=== PATIENT | male | born 1975 | race Caucasian/White ===

== ENCOUNTER 2018-03-28 22:33 | Inpatient (IN) | payer OTHER ==
[2018-03-28 23:01] VITALS: BMI 34.7
--- NOTE | 2018-03-29 00:23 | PDOC ---
History of Present Illness - General Chief Complaint: Blood Pressure Problem Stated Complaint: BLOOD PRESSURE PROBLEM Time Seen by Provider: 03/29/18 00:23 - History of Present Illness Initial Comments: 03/29/18 02:35 The patient is a 42 year old male with no significant PMH who presents for evaluation of elevated blood pressure. The patient notes that his blood pressures have been elevated over the past week on a home cuff and presented to an urgent care today where his bp was 210/110 and was sent to the ER for further evaluation. He states that he has not had blood pressure issues in the past and is not taking any medications or other substances. He otherwise denies fevers, chills, headache, chest pain, SOB, nausea, vomiting, abdominal pain, or changes with urination or bowel movements. Past History - Past Medical History Allergies/Adverse Reactions: Allergies Allergy/AdvReac Type Severity Reaction Status Date / Time No Known Drug Allergies Allergy Verified 03/29/18 00:43 - Suicide/Smoking/Psychosocial Hx Smoking History: Never smoked Have you smoked in the past 12 months: No Information on smoking cessation initiated: No Hx Alcohol Use: No Drug/Substance Use Hx: No Review of Systems - Review of Systems Comments:: 03/29/18 02:40 Constitutional: No fevers, chills, fatigue, malaise HEENT: No Rhinorrhea, nasal congestion, visual changes Cardiovascular: No chest pain, syncope, palpitations, lightheadedness Respiratory: No Cough, SOB, Hemoptysis, Gastrointestinal: No Abdominal pain, Nausea, Vomiting, Constipation, Diarrhea, Melena Genitourinary: No Dysuria, Frequency, Urgency, Hesitancy, Hematuria, Flank pain Musculoskeletal: No Myalgia, arthralgia Skin: No rashes, itching, bruising, pallor Neurologic: No Headache, Dizziness, Numbness, Weakness, or Tingling Psychiatric: No Hallucinations. No SI or HI *Physical Exam - Vital Signs Last Vital Signs Temp Pulse Resp BP Pulse Ox 98.0 F 78 18 209/120 100 03/28/18 22:56 03/28/18 22:56 03/28/18 22:56 03/28/18 22:56 03/28/18 22:56 - Physical Exam Comments: 03/29/18 02:41 General Appearance: Nourished. No Apparent Distress HEENT: No Pharyngeal Erythema, Tonsillar Exudate, Tonsillar Erythema Neck: No Cervical Lymphadenopathy Respiratory/Chest: Lungs Clear, Normal Breath Sounds. No Crackles, Rales, Rhonchi, Wheezing Cardiovascular: Regular Rhythm, Regular Rate. No Murmur, Gallops, Rubs Gastrointestinal/Abdominal: Normal Bowel Sounds, Soft. No Guarding, Rebound, Tenderness Musculoskeletal: No CVA Tenderness Extremity: Normal Capillary Refill Integumentary: Normal Color, Dry, Warm Neurologic: Fully Oriented, Alert, Normal Mood/Affect, Normal Response, Heart Score/ECG Review #1 ECG reviewed & interpreted by me at: 01:16 (Left Ventricular Hypertrophy; T wave inversions in leads V3-V6) General ECG Interpretation: Sinus Rhythm, Normal Rate, Normal Intervals, No acute ischemic changes #2 ECG reviewed & interpreted by me at: 05:31 (Left Ventricular Hypertrophy; T wave inversions in leads V2-V6) General ECG Interpretation: Sinus Rhythm, Normal Rate, Normal Intervals, No acute ischemic changes ED Treatment Course - LABORATORY CBC & Chemistry Diagram: 03/29/18 00:38 03/29/18 00:38 Medical Decision Making - Medical Decision Making 03/29/18 02:41 The patient is a 42 year old male with no significant PMH who presents for evaluation of elevated blood pressure. The patient is asymptomatic at this time , however we will obtain a cbc, cmp, troponin, ekg, and head ct to evaluate further. We will treat the patient with 10mg of iv hydralazine in the meantime and continue to monitor and reassess while here in the ED. 03/29/18 05:52 CBC, cmp, troponin are unremarkable. Head CT demonstrates microvascular changes as preliminarily read by our electronic transaction implementer radiologist. The patient's BP initially improved with 10mg of hydralazine and 20mg of labetolol, however it increased to 180/130. Given the patient's ekg changes with ventricular hypertrophy and t wave inversions as well as continued hypertension despite medication, we believe he requires admission for further management. We will place the patient on a nitro drip and obtain repeat troponin. We discussed the case with the admitting team who accepted the patient for admission. *DC/Admit/Observation/Transfer Diagnosis at time of Disposition: Uncontrolled hypertension High blood pressure Qualifiers: Hypertension type: unspecified Qualified Code(s): I10 - Essential (primary) hypertension - Discharge Dispostion Condition at time of disposition: Stable Decision to Admit order: Yes - Referrals - Patient Instructions - Post Discharge Activity
--- NOTE | 2018-03-29 00:31 | PDOC ---
Attending Attestation - HPI HPI: 03/29/18 00:32 The patient is a 42 year old male, with no significant past medical history, who presents to the emergency department with high blood pressure measured at home and then at urgent care last night. The patient denies chest pain, shortness of breath, headache and dizziness. The patient denies fever, chills, nausea, vomit, diarrhea and constipation. The patient denies dysuria, frequency, urgency and hematuria. Allergies: NKDA - Medical Decision Making 03/29/18 00:32 Documentation prepared by Telma Huston, acting as medical records tech for Luther Rajput DO. <Telma Huston - Last Filed: 03/29/18 00:32> - Resident Resident Name: Uri Bagley - ED Attending Attestation I have performed the following: I have examined & evaluated the patient, The case was reviewed & discussed with the resident, I agree w/resident's findings & plan, Exceptions are as noted - Physicial Exam PE: 03/29/18 00:3 *Physical Exam General Appearance: Yes: Appropriately Dressed. No: Apparent Distress, Intoxicated HEENT: positive: EOMI, ROMAN, Normal ENT Inspection, Normal Voice, TMs Normal, Pharynx Normal. negative: Pale Conjunctivae, Photophobia, Scleral Icterus (R), Scleral Icterus (L) Neck: positive: Trachea midline, Normal Thyroid, Supple. negative: Tender, Rigid, Carotid bruit, Stridor, Lymphadenopathy (R), Lymphadenopathy (L), Thyromegaly Respiratory/Chest: positive: Lungs Clear, Normal Breath Sounds. negative: Chest Tender, Respiratory Distress, Accessory Muscle Use, Labored Respiration, RES, Crackles, Rales, Rhonchi, Stridor, Wheezing, Dullness Cardiovascular: positive: Regular Rhythm, Regular Rate, S1, S2. negative: Edema , JVD, Murmur, Bradycardia, Tachycardia Vascular Pulses: Dorsalis-Pedis (R): 2+, Doralis-Pedis (L): 2+ Gastrointestinal/Abdominal: positive: Normal Bowel Sounds, Flat, Soft. negative : Tender, Organomegaly, Pulsatile Mass, Increased Bowel Sounds, Decreased BS, Distended, Guarding, Rebound, Hernia, Hepatomegaly, Spleenomegaly Lymphatic: negative: Adenopathy, Tenderness Musculoskeletal: positive: Normal Inspection. negative: CVA Tenderness, Decreased Range of Motion Extremity: positive: Normal Capillary Refill, Normal Inspection, Normal Range of Motion, Pelvis Stable. negative: Tender, Pedal Edema, Swelling, Erythema Integumentary: positive: Normal Color, Dry, Warm. negative: Cyanotic, Erythema , Jaundice, Rash Neurologic: positive: managing partner II-XII NML intact, Fully Oriented, Alert, Normal Mood/ Affect, Motor Strength 5/5. negative: EOM Palsy, Facial Droop, Sensory Deficit <Luther Rajput - Last Filed: 03/29/18 01:07>
[2018-03-29] MEDS ORDERED: hydrALAZINE HCL 20 MG/ML VIAL IVPUSH ONE (00:34)
[2018-03-29] MEDS ORDERED: hydrALAZINE HCL 20 MG/ML VIAL ONE (00:45)
[2018-03-29 01:00] LABS: EOS % 2.2 % (0-4.5); HEMATOCRIT 44.7 % (35.4-49); HEMOGLOBIN 15.2 GM/dL (11.7-16.9); LYMPH % 50.7 % (8-40); MCH 27.8 pg (25.7-33.7); MEAN CELL VOLUME 81.7 fl (80-96); MEAN PLT VOLUME 10.9 fl (7.5-11.1); MONO % 7.3 % (3.8-10.2); NEUT % 38.8 % (42.8-82.8); PLATELET COUNT 177 K/MM3 (134-434); RBC 5.47 M/mm3 (4.00-5.60); RDW 14.5 % (11.9-15.9); WHITE BLOOD COUNT 6.8 K/mm3 (4.0-10.0)
[2018-03-29 01:24] LABS: ALBUMIN 3.9 g/dl (3.4-5.0); ANION GAP 5 (8-16); BILIRUBIN,TOTAL 0.4 mg/dL (0.2-1.0); BLOOD UREA NITROGEN 15 mg/dL (7-18); CALCIUM 8.7 mg/dL (8.5-10.1); CHLORIDE 101 mmol/L (98-107); CO2 33 mmol/L (21-32); CREATININE 1.1 mg/dL (0.7-1.3); GLUCOSE,RANDOM 87 mg/dL (74-106); POTASSIUM 3.1 mmol/L (3.5-5.1); SGOT/AST 33 U/L (15-37); SGPT/ALT 47 U/L (12-78); SODIUM 139 mmol/L (136-145); TOT PROT 7.9 g/dl (6.4-8.2)
[2018-03-29 01:27] LABS: ALK PHOS 78 U/L (45-117)
[2018-03-29] MEDS ORDERED: LABETALOL HCL 5 MG/1 ML (100MG/20 ML VIAL) IVPUSH ONE (02:50)
[2018-03-29] MEDS ORDERED: LABETALOL HCL 5 MG/1 ML (200MG/40ML VIAL) IVPB ONE (03:07)
[2018-03-29] MEDS ORDERED: NITROGLYCERIN 25MG/D5W 250ML 25 MG/250 ML ML IVPB SCH (05:15)
[2018-03-29] MEDS ORDERED: NITROGLYCERIN 25MG/D5W 250ML 25 MG/250 ML ML IVPB ONE (05:16)
--- NOTE | 2018-03-29 05:59 | PN ---
Teaching Attending Note Name of Resident: She Curtis ATTENDING PHYSICIAN STATEMENT I saw and evaluated the patient. I reviewed the resident's note and discussed the case with the resident. I agree with the resident's findings and plan as documented. SUBJECTIVE: Patient is a 42 year old man with no significant PMH who presents for evaluation of elevated blood pressure. The patient notes that his blood pressures have been elevated over the past week on a home cuff and presented to an urgent care today where his BP was 210/110 and was sent to the ER for further evaluation. He states that he has not had blood pressure issues in the past and is not taking any medications or other substances. Unclear why he would purchase a BP machine and check his BP at home if indeed he has never maria de jesus told about hypertension. His mother has hypertension. He otherwise denies fevers , chills, headache, chest pain, SOB, nausea, vomiting, abdominal pain, or changes with urination or bowel movements. OBJECTIVE: Alert and in no acute distress Vital Signs Period Temp Pulse Resp BP Sys/Celestin Pulse Ox Last 24 Hr 98.0 F-98.3 F 75-89 18-19 149-209/102-130 96-100 HEENT: No Jaundice, eye redness or discharge, No papilledema. PERRLA, EOMI. Normocephalic, atraumatic. External ears are normal and hearing is grossly intact. No nasal discharge. Neck: Supple, nontender. No palpable adenopathy or thyromegaly. No JVD Chest: Good effort. Clear to auscultation and percussion. Heart: Regular. No S3, rub or murmur Abdomen: Not distended, soft, nontender and no HSM. No rebound or guarding. Normoactive bowel sounds. Ext: Peripheral pulses intact. No leg edema. Skin: Warm and dry. No petechiae, rash or ecchymosis. Neuro: Alert. Oriented x3. CN 2-12 grossly intact. Sensation grossly intact in all four extremities and DTR are symmetric. Current Medications Generic Name Dose Route Start Last Admin Trade Name Freq PRN Reason Stop Dose Admin Nitroglycerin/Dextrose 25 mg in 250 mls @ 6 mls/hr 03/29/18 05:15 03/29/18 05 :22 Nitroglycerin 25mg/D5w 250ml IVPB 10 mcg/min TITR POLY 6 mls/hr Administration 10 MCG/MIN Abnormal Lab Results 03/29/18 03/29/18 00:38 00:38 Neutrophils % 38.8 L Lymphocytes % 50.7 H Potassium 3.1 L Carbon Dioxide 33 H Anion Gap 5 L ASSESSMENT AND PLAN: 1. Hypertensive Urgency - EKG shows LVH, diffuse t wave inversion and ST depression but initial troponin is negative and he does not have chest pain. Will rule out ACS and consult cardiology. Get ECHO. Will admit to ICU because he is on nitroglycerin drip - bolus doses of labetalol and hydralazine failed to bring BP down consistently in the ER. Has hypokalemia and metabolic alkalosis - needs workup to rule out secondary hypertension - consult nephrology. Get UA, Mg+ level and give KCL IV 20 meq stat and then 40 mg PO bid x 3 doses. Give amlodipine 5 g po q am and lisinopril 20 mg po bid so that IV nitroglycerine taper can commence sooner. Will need HCTZ 12.5 mp po qd in the near future. Patient urged to eat a low salt diet, exercise and loose weight. 2. Obesity - Will provide patient all the necessary assistance , counseling and positive reinforcement to facilitate weight loss. Consult management expert. 3. DVT prophylaxis - Heparin 5000u sq tid. 4. Advance directives - Full code
[2018-03-29] MEDS ORDERED: HEPARIN NA (PORCINE) 5,000 UNITS/ML 1ML VIAL ONE (06:37)
[2018-03-29] MEDS: HEPARIN NA (PORCINE) 5,000 UNITS/ML 1ML VIAL SQ SCH ×3 (06:41→21:12)
--- NOTE | 2018-03-29 06:50 | HP ---
CHIEF COMPLAINT:Elevated blood pressure PCP: HISTORY OF PRESENT ILLNESS: Patient is a 42 year old male with no significant past medical history presented with elevated blood pressure. One week prior, patient decided to have his BP checked, and was noted to have 220/110. No associated symptoms. No consult done. Yesterday, he had it checked again and BP was still elevated at 200/100. Patient denies chest pain, palpitations, SOB, headaches, dizziness, changes in vision. Denied fever, chills, nausea, vomiting. ER course was notable for: (1)BP >160/>100 after giving Hydralazine, Labetalol. Patient now on Nitroglycerin drip. (2)Head CT: microvascular changes (3)EKG: LVH, T wave inversion, no ST-T wave abnormality Recent Travel:Denied any recent travel PAST MEDICAL HISTORY: None PAST SURGICAL HISTORY: None Social History: Smoking:nonsmoker Alcohol:occasional EtOH use Drugs: no illicit drug use Family History: Allergies No Known Drug Allergies Allergy (Verified 03/29/18 00:43) HOME MEDICATIONS: No home medications REVIEW OF SYSTEMS CONSTITUTIONAL: Absent: fever, chills, diaphoresis, generalized weakness, malaise, loss of appetite, weight change HEENT: Absent: rhinorrhea, nasal congestion, throat pain, throat swelling, difficulty swallowing, mouth swelling, ear pain, eye pain, visual changes CARDIOVASCULAR: Absent: chest pain, syncope, palpitations, irregular heart rate, lightheadedness , peripheral edema RESPIRATORY: Absent: cough, shortness of breath, dyspnea with exertion, orthopnea, wheezing, stridor, hemoptysis GASTROINTESTINAL: Absent: abdominal pain, abdominal distension, nausea, vomiting, diarrhea, constipation, melena, hematochezia GENITOURINARY: Absent: dysuria, frequency, urgency, hesitancy, hematuria, flank pain, genital pain MUSCULOSKELETAL: Absent: myalgia, arthralgia, joint swelling, back pain, neck pain SKIN: Absent: rash, itching, pallor HEMATOLOGIC/IMMUNOLOGIC: Absent: easy bleeding, easy bruising, lymphadenopathy, frequent infections ENDOCRINE: Absent: unexplained weight gain, unexplained weight loss, heat intolerance, cold intolerance NEUROLOGIC: Absent: headache, focal weakness or paresthesias, dizziness, unsteady gait, seizure, mental status changes, bladder or bowel incontinence PSYCHIATRIC: Absent: anxiety, depression, suicidal or homicidal ideation, hallucinations. PHYSICAL EXAMINATION Vital Signs - 24 hr 03/28/18 03/29/18 03/29/18 22:56 02:48 03:48 Temperature 98.0 F Pulse Rate 78 Pulse Rate [ 89 89 Right Apical] Respiratory 18 18 18 Rate Blood Pressure 209/120 Blood Pressure 196/117 164/102 [Right Arm] O2 Sat by Pulse 100 96 96 Oximetry (%) 03/29/18 03/29/18 03/29/18 04:08 05:00 05:54 Temperature 98.3 F Pulse Rate Pulse Rate [ 75 89 86 Right Apical] Respiratory 19 19 Rate Blood Pressure Blood Pressure 149/104 180/130 160/110 [Right Arm] O2 Sat by Pulse Oximetry (%) GENERAL: Awake, alert, and fully oriented, in no acute distress. HEAD: Normal with no signs of trauma. EYES: Pupils equal, round and reactive to light, extraocular movements intact, sclera anicteric, conjunctiva clear. No papilledema. EARS, NOSE, THROAT: Ears normal, nares patent, oropharynx clear without exudates. Moist mucous membranes. NECK: Normal range of motion, supple without lymphadenopathy, JVD, or masses. LUNGS: Breath sounds equal, clear to auscultation bilaterally. No wheezes, and no crackles. No accessory muscle use. HEART: Regular rate and rhythm, normal S1 and S2 without murmur, rub or gallop. ABDOMEN: Soft, nontender, not distended, normoactive bowel sounds, no guarding, no rebound, no masses. No hepatomegaly or splenomegaly. MUSCULOSKELETAL: Normal range of motion at all joints. No bony deformities or tenderness. No CVA tenderness. UPPER EXTREMITIES: 2+ pulses, warm, well-perfused. No cyanosis. No clubbing. No peripheral edema. LOWER EXTREMITIES: 2+ pulses, warm, well-perfused. No calf tenderness. No peripheral edema. NEUROLOGICAL: Cranial nerves II-XII intact. Normal speech. Normal gait. PSYCHIATRIC: Cooperative. Good eye contact. Appropriate mood and affect. SKIN: Warm, dry, normal turgor, no rashes or lesions noted, normal capillary refill. Laboratory Results - last 24 hr 03/29/18 03/29/18 03/29/18 00:38 00:38 05:22 WBC 6.8 RBC 5.47 Hgb 15.2 Hct 44.7 MCV 81.7 MCH 27.8 MCHC 34.0 RDW 14.5 Plt Count 177 MPV 10.9 Absolute Neuts (auto) 2.6 Neutrophils % 38.8 L Lymphocytes % 50.7 H Monocytes % 7.3 Eosinophils % 2.2 Basophils % 1.0 Nucleated RBC % 0 Sodium 139 Potassium 3.1 L Chloride 101 Carbon Dioxide 33 H Anion Gap 5 L BUN 15 Creatinine 1.1 Creat Clearance w eGFR > 60 Random Glucose 87 Calcium 8.7 Total Bilirubin 0.4 AST 33 ALT 47 Alkaline Phosphatase 78 Creatine Kinase 205 194 Creatine Kinase Index 0.5 CK-MB (CK-2) 1.13 Troponin I 0.03 < 0.02 D Total Protein 7.9 Albumin 3.9 CBC, BMP 03/29/18 00:38 03/29/18 00:38 ASSESSMENT/PLAN: Patient is a 42 year old male with no significant past medical history presented with elevated blood pressure. #Hypertensive emergency: Patient has uncontrolled blood pressure, with evolving EKG changes. -rule out ACS -Patient also presents with hypokalemia, rule out secondary cause of HTN -Continue Nitroglycerin drip -Start Amlodipine 10mg QD -Start Lisinopril 20 mg BID -Cardiology consult appreciated. -Nephrology consult appreciated. #Hypokalemia: Potassium is 3.1 -KCl 40 mEq PO BID x 3 doses -Monitor potassium, magnesium #FEN -Not on any standing fluids -routine electrolyte monitoring -sodium restricted diet #Prophylaxis -Heparin 5000 units sq TID #Disposition -admit to ICU -full code Visit type - Emergency Visit Emergency Visit: Yes ED Registration Date: 03/29/18 Care time: The patient presented to the Emergency Department on the above date and was hospitalized for further evaluation of their emergent condition. - New Patient This patient is new to me today: Yes Date on this admission: 03/29/18 - Critical Care Critical Care patient: No Hospitalist Screening - Colonoscopy Questionnaire Colonoscopy Questionnaire: Colonoscopy Questionnaire - Patient: 50 - 75 years old and never had a screening colonoscopy: Unknown History of colon or rectal polyps, or CA: Unknown History of IBD, Crohn's disease or UC: Unknown History of abdominal radiation therapy as a child: Unknown - Relative: 1 with colon or rectal CA, or polyps at age 60 or younger: Unknown Colon or rectal CA diagnosed at age 45 or younger: Unknown Multiple relatives with colon or rectal CA: Unknown - Outcome: Screening Result: Negative Screen
[2018-03-29] MEDS: NITROGLYCERIN 25MG/D5W 250ML 25 MG/250 ML ML IVPB SCH (07:10)
[2018-03-29 08:32] LABS: HEMATOCRIT 45.2 % (35.4-49); HEMOGLOBIN 15.3 GM/dL (11.7-16.9); MCH 27.9 pg (25.7-33.7); MCHC 33.9 g/dl (32.0-35.9); MEAN CELL VOLUME 82.3 fl (80-96); MEAN PLT VOLUME 10.5 fl (7.5-11.1); PLATELET COUNT 180 K/MM3 (134-434); RBC 5.49 M/mm3 (4.00-5.60); WHITE BLOOD COUNT 5.1 K/mm3 (4.0-10.0)
[2018-03-29 08:55] LABS: ALBUMIN 4.3 g/dl (3.4-5.0); ANION GAP 8 (8-16); BILIRUBIN,TOTAL 0.6 mg/dL (0.2-1.0); BLOOD UREA NITROGEN 13 mg/dL (7-18); CALCIUM 9.1 mg/dL (8.5-10.1); CHLORIDE 103 mmol/L (98-107); CO2 30 mmol/L (21-32); CREATININE 1.2 mg/dL (0.7-1.3); GLUCOSE,RANDOM 108 mg/dL (74-106); MAGNESIUM 2.2 mg/dL (1.8-2.4); PHOSPHOROUS 2.6 mg/dL (2.5-4.9); POTASSIUM 3.3 mmol/L (3.5-5.1); SGOT/AST 27 U/L (15-37); SGPT/ALT 45 U/L (12-78); SODIUM 141 mmol/L (136-145); TOT PROT 8.5 g/dl (6.4-8.2)
[2018-03-29 08:58] LABS: ALK PHOS 82 U/L (45-117)
--- NOTE | 2018-03-29 09:02 | PN ---
Teaching Attending Note Name of Resident: Shruti Luciano ATTENDING PHYSICIAN STATEMENT I saw and evaluated the patient. I reviewed the resident's note and discussed the case with the resident. I agree with the resident's findings and plan as documented. SUBJECTIVE: Patient is comfortable has no chest pain , no abdominal pain, was found to have elevated BP at home and came in for further care and evaluation. OBJECTIVE: Vital Signs Temperature 98.0 F 03/29/18 08:04 Pulse Rate 84 03/29/18 08:04 Respiratory Rate 21 03/29/18 08:04 Blood Pressure 145/87 03/29/18 08:04 O2 Sat by Pulse Oximetry (%) 95 03/29/18 08:04 HEENT: No Jaundice, eye redness or discharge, No papilledema. PERRLA, EOMI. Normocephalic, atraumatic. External ears are normal and hearing is grossly intact. No nasal discharge. Neck: Supple, nontender. No palpable adenopathy or thyromegaly. No JVD Chest: Good effort. Clear to auscultation and percussion. Heart:RRR, Regular. No S3, rub or murmur Abdomen: Not distended, soft, nontender and no HSM. No rebound or guarding. Normoactive bowel sounds. Ext: Peripheral pulses intact. No leg edema. Skin: Warm and dry. No petechiae, rash or ecchymosis. Neuro: Alert. Oriented x3. CN 2-12 grossly intact. Sensation grossly intact in all four extremities and DTR are symmetric. CBCD WBC 5.1 K/mm3 (4.0-10.0) 03/29/18 08:20 RBC 5.49 M/mm3 (4.00-5.60) 03/29/18 08:20 Hgb 15.3 GM/dL (11.7-16.9) 03/29/18 08:20 Hct 45.2 % (35.4-49) 03/29/18 08:20 MCV 82.3 fl (80-96) 03/29/18 08:20 MCHC 33.9 g/dl (32.0-35.9) 03/29/18 08:20 RDW 14.0 % (11.9-15.9) 03/29/18 08:20 Plt Count 180 K/MM3 (134-434) 03/29/18 08:20 MPV 10.5 fl (7.5-11.1) 03/29/18 08:20 CMP Sodium 139 mmol/L (136-145) 03/29/18 00:38 Potassium 3.1 mmol/L (3.5-5.1) L 03/29/18 00:38 Chloride 101 mmol/L (98-107) 03/29/18 00:38 Carbon Dioxide 33 mmol/L (21-32) H 03/29/18 00:38 Anion Gap 5 (8-16) L 03/29/18 00:38 BUN 15 mg/dL (7-18) 03/29/18 00:38 Creatinine 1.1 mg/dL (0.7-1.3) 03/29/18 00:38 Creat Clearance w eGFR > 60 (>60) 03/29/18 00:38 Random Glucose 87 mg/dL (74-106) 03/29/18 00:38 Calcium 8.7 mg/dL (8.5-10.1) 03/29/18 00:38 Total Bilirubin 0.4 mg/dL (0.2-1.0) 03/29/18 00:38 AST 33 U/L (15-37) 03/29/18 00:38 ALT 47 U/L (12-78) 03/29/18 00:38 Alkaline Phosphatase 78 U/L (45-117) 03/29/18 00:38 Total Protein 7.9 g/dl (6.4-8.2) 03/29/18 00:38 Albumin 3.9 g/dl (3.4-5.0) 03/29/18 00:38 CARDIAC ENZYMES Creatine Kinase 194 IU/L (39-308) 03/29/18 05:22 Troponin I < 0.02 ng/ml (0.00-0.05) D 03/29/18 05:22 Current Medications Generic Name Dose Route Start Last Admin Trade Name Seda PRN Reason Stop Dose Admin Amlodipine Besylate 10 mg 03/29/18 10:00 Norvasc - PO DAILY POLY Heparin Sodium (Porcine) 5,000 unit 03/29/18 06:30 03/29/18 06:41 Heparin - SQ 5,000 unit TID POLY Administration Nitroglycerin/Dextrose 25 mg in 250 mls @ 1.8 mls/hr 03/29/18 06:52 03/29/18 07:10 Nitroglycerin 25mg/D5w 250ml IVPB 3 mcg/min TITR POLY 1.8 mls/hr Administration 3 MCG/MIN Lisinopril 20 mg 03/29/18 10:00 Prinivil PO BID POLY Potassium Chloride 40 meq 03/29/18 10:00 K-Dur - PO 03/30/18 10:01 BID POLY Home Medications Medication Instructions Recorded NK [No Known Home Medication] 03/29/[address]: supratentrial chronic white matter microangiopathic ischemic changes, no evidence of infarction. ASSESSMENT AND PLAN: Patient is a 42 year old man with no significant PMHx who presents for evaluation of elevated blood pressure. # Hypertensive Urgency - On NTG drip was started in ED. cardio consult appreciated. on Amlodipine, echo ordered , nephro consult appreciated. # Obesity - Will provide patient all the necessary assistance , counseling and positive reinforcement to facilitate weight loss. Consult area relief pilot. DVT prophylaxis - Heparin 5000u sq tid. Advance directives - Full code
[2018-03-29] MEDS ORDERED: LISINOPRIL 20 MG TABLET (FP) PO SCH (10:00)
[2018-03-29] MEDS: POTASSIUM CHLORIDE TABS 20 MEQ TABLET.ER (FP) PO SCH ×2 (11:36→21:12)
[2018-03-29] MEDS: amLODIPine BESYLATE 10 MG TABLET (FP) PO SCH (11:36)
--- NOTE | 2018-03-29 12:46 | EKG ---
Test Reason : Blood Pressure : / mmHG Vent. Rate : 073 BPM Atrial Rate : 073 BPM P-R Int : 182 ms QRS Dur : 112 ms QT Int : 414 ms P-R-T Axes : 056 -12 180 degrees QTc Int : 456 ms NORMAL SINUS RHYTHM BIATRIAL ENLARGEMENT LEFT VENTRICULAR HYPERTROPHY WITH REPOLARIZATION ABNORMALITY ABNORMAL ECG WHEN COMPARED WITH ECG OF 29-MAR-2018 01:03, NO SIGNIFICANT CHANGE WAS FOUND Confirmed by [place] MCKINNEY, AGUSTINA ([id number]) on 03/29/2018 12:45:55 PM Referred By: Confirmed By:AGUSTINA HO MD
--- NOTE | 2018-03-29 12:46 | EKG ---
Test Reason : Blood Pressure : / mmHG Vent. Rate : 082 BPM Atrial Rate : 082 BPM P-R Int : 174 ms QRS Dur : 112 ms QT Int : 392 ms P-R-T Axes : 052 -08 174 degrees QTc Int : 457 ms NORMAL SINUS RHYTHM LEFT VENTRICULAR HYPERTROPHY WITH REPOLARIZATION ABNORMALITY ABNORMAL ECG NO PREVIOUS ECGS AVAILABLE Confirmed by [place] MCKINNEY, AGUSTINA ([id number]) on 03/29/2018 12:46:09 PM Referred By: Confirmed By:AGUSTINA HO MD
[2018-03-29 13:20] LABS: CHOLESTEROL 198 mg/dL (50-200); HDL CHOLESTEROL 54 mg/dL (40-60); TRIGLYCERIDES 75 mg/dL (35-160)
[2018-03-29] MEDS ORDERED: ASPIRIN 81 MG CHEWABLE TABLETS ONE (14:03)
[2018-03-29] MEDS: ASPIRIN 81 MG CHEWABLE TABLETS PO SCH (14:08)
--- NOTE | 2018-03-29 14:14 | PN ---
Physical Exam: SUBJECTIVE: Patient is a 42 y/o male with no medical history who presents with hypertensive urgency. In the ED he was given hydralazine, labetalol, and then started on a nitroglycerin drip. Patient has no complaints, denies headache, eye pain, or chest pain. No acute events overnight. Patient in holding of ED waiting for a tele bed OBJECTIVE: Vital Signs Period Temp Pulse Resp BP Sys/Celestin Pulse Ox Last 24 Hr 98.0 F-98.5 F 75-89 18-21 145-209/72-130 94-100 GENERAL: The patient is awake, alert, and fully oriented, in no acute distress. EYES: PERRL, extraocular movements intact. LUNGS: Breath sounds equal, clear to auscultation bilaterally HEART: Regular rate and rhythm, ABDOMEN: Soft, nontender, nondistended, normoactive bowel sounds EXTREMITIES: 2+ pulses, warm, well-perfused, no edema. NEUROLOGICAL: Normal speech, normal gait PSYCH: Normal mood, normal affect. SKIN: Warm, dry, normal turgor, no rashes or lesions noted Laboratory Results - last 24 hr 03/29/18 03/29/18 03/29/18 00:38 00:38 05:22 WBC 6.8 RBC 5.47 Hgb 15.2 Hct 44.7 MCV 81.7 MCH 27.8 MCHC 34.0 RDW 14.5 Plt Count 177 MPV 10.9 Absolute Neuts (auto) 2.6 Neutrophils % 38.8 L Lymphocytes % 50.7 H Monocytes % 7.3 Eosinophils % 2.2 Basophils % 1.0 Nucleated RBC % 0 Sodium 139 Potassium 3.1 L Chloride 101 Carbon Dioxide 33 H Anion Gap 5 L BUN 15 Creatinine 1.1 Creat Clearance w eGFR > 60 Random Glucose 87 Calcium 8.7 Phosphorus Magnesium Total Bilirubin 0.4 AST 33 ALT 47 Alkaline Phosphatase 78 Creatine Kinase 205 194 Creatine Kinase Index 0.5 0.6 CK-MB (CK-2) 1.13 1.25 Troponin I 0.03 < 0.02 D Total Protein 7.9 Albumin 3.9 Triglycerides Cholesterol Total LDL Cholesterol HDL Cholesterol 03/29/18 03/29/18 08:00 08:20 WBC 5.1 RBC 5.49 Hgb 15.3 Hct 45.2 MCV 82.3 MCH 27.9 MCHC 33.9 RDW 14.0 Plt Count 180 MPV 10.5 Absolute Neuts (auto) Neutrophils % Lymphocytes % Monocytes % Eosinophils % Basophils % Nucleated RBC % Sodium 141 Potassium 3.3 L Chloride 103 Carbon Dioxide 30 Anion Gap 8 BUN 13 Creatinine 1.2 Creat Clearance w eGFR > 60 Random Glucose 108 H D Calcium 9.1 Phosphorus 2.6 Magnesium 2.2 Total Bilirubin 0.6 AST 27 ALT 45 Alkaline Phosphatase 82 Creatine Kinase 174 Creatine Kinase Index 0.5 CK-MB (CK-2) 0.98 Troponin I < 0.02 Total Protein 8.5 H Albumin 4.3 Triglycerides 75 Cholesterol 198 Total LDL Cholesterol 126 H HDL Cholesterol 54 Active Medications Generic Name Dose Route Start Last Admin Trade Name Freq PRN Reason Stop Dose Admin Amlodipine Besylate 10 mg 03/29/18 10:00 03/29/18 11:36 Norvasc - PO 10 mg DAILY [facility] Administration Aspirin 81 mg 03/29/18 13:00 Asa - PO DAILY [facility] Atorvastatin Calcium 40 mg 03/29/18 22:00 Lipitor - PO HS [facility] Heparin Sodium (Porcine) 5,000 unit 03/29/18 06:30 03/29/18 06:41 Heparin - SQ 5,000 unit TID [facility] Administration Nitroglycerin/Dextrose 25 mg in 250 mls @ 1.8 mls/hr 03/29/18 06:52 03/29/18 07:10 Nitroglycerin 25mg/D5w 250ml IVPB 3 mcg/min TITR POLY 1.8 mls/hr Administration 3 MCG/MIN Potassium Chloride 10 meq in 100 mls @ 100 mls/hr 03/29/18 13:00 Potassium Chloride 10 Meq Premix Ivpb - IVPB 03/29/18 15:59 Q60M POLY Lisinopril 20 mg 03/29/18 10:00 03/29/18 11:36 Prinivil PO 20 mg BID [facility] Administration Potassium Chloride 40 meq 03/29/18 10:00 03/29/18 11:36 K-Dur - PO 03/30/18 10:01 40 meq BID [facility] Administration ASSESSMENT/PLAN: Patient is a 42 y/o male with no medical history who presents with hyertensive urgency. #Hypertensive Urgency - Nitroglycerin drip - amlodipine 10 mg daily - Metoprolol tartrate 50 mg twice daily - Losartan-HCTZ 50-25mg daily - aspirin 81 mg - atorvastatin 40 po hs - f/u echo - Cardio consult; Dr. Mullen - Nephro consult; Devang - trop negative x 2 - EKG : LVH, diffuse Twave inversion, ST depression - Head CT: supratentrial chronic white matter microangiopathic ischemic changes, no evidence of infarction #obestiy -dietary consult - f/u lipid panel FEN -replete K Dispo: possibly tomorrow if stable BP Visit type - Emergency Visit Emergency Visit: Yes ED Registration Date: 03/29/18 Care time: The patient presented to the Emergency Department on the above date and was hospitalized for further evaluation of their emergent condition. - New Patient This patient is new to me today: Yes Date on this admission: 03/29/18 - Critical Care Critical Care patient: No
--- NOTE | 2018-03-29 15:02 | CON.CARD ---
Consult Consult Specialty:: Cardiology Referred by:: Dr. Saleem Reason for Consultation:: Severe hypertension - History of Present Illness Chief Complaint: Severe hypertension History of Present Illness: 42 year old obese man with no known significant past medical history presented to ED 03/29/18 with severe hypertension. The patient was noted to have severe hypertension one week ago (220/110). His BP remains elevated today 200/100 and he decided to come to ED for treatement. He has been asymptomatic from cardiac standpoint. He reports no chest pain, SOB , palpitations, headaches, dizziness, changes in vision, syncope, near syncope, edema, orthopnea or PND. He has good baseline exercise tolerance without exertional chest pain or SOB. ER course was notable for: (1)BP >160/>100 after giving Hydralazine, Labetalol. Patient now on Nitroglycerin drip. (2)Head CT: microvascular changes (3)EKG: Sinus rhythm, LVH, inferolateral ST-T abnormalities. - History Source History Provided By: Patient, Family Member Limitations to Obtaining History: No Limitations - Past Medical History Cardio/Vascular: Yes: HTN - Alcohol/Substance Use Hx Alcohol Use: No - Smoking History Smoking history: Never smoked Have you smoked in the past 12 months: No Home Medications - Allergies Allergies/Adverse Reactions: Allergies Allergy/AdvReac Type Severity Reaction Status Date / Time No Known Drug Allergies Allergy Verified 03/29/18 00:43 - Home Medications Home Medications: Ambulatory Orders NK [No Known Home Medication] 03/29/18 Review of Systems - Review of Systems Constitutional: reports: No Symptoms Eyes: reports: No Symptoms HENT: reports: No Symptoms Neck: reports: No Symptoms Cardiovascular: reports: No Symptoms Respiratory: reports: No Symptoms Gastrointestinal: reports: No Symptoms Genitourinary: reports: No Symptoms Breasts: reports: No Symptoms Reported Musculoskeletal: reports: No Symptoms Integumentary: reports: No Symptoms Neurological: reports: No Symptoms Endocrine: reports: No Symptoms Hematology/Lymphatic: reports: No Symptoms Vital Signs: Vital Signs Temperature 98.0 F 03/29/18 08:04 Pulse Rate 84 03/29/18 11:35 Respiratory Rate 03/29/18 11:35 Blood Pressure 168/103 03/29/18 11:35 O2 Sat by Pulse Oximetry (%) 94 L 03/29/18 11:35 General: Well developed. Obese. No acute distress. Head: Normocephalic. Atraumatic, Eyes: PERRLA, EOMI. Sclerae anicteric. Conjunctivae clear. Neck: Supple. No JVD. No bruits. Heart: Normal S1, S2: Regularly regular rhythm and rate. No murmur. No gallop or rub. Lungs: Symmetrical air entry. Clear to auscultation. No crackle. No wheezing or rhonchi. Abdomen: Soft. Bowel sound positive. Non tender. No masses. Extremities: No edema. No clubbing or cyanosis. PD 2+, equal bilaterally. Neuro: Intact, no focal findings. AAO X3. - Other Data Labs, Other Data: CBC, BMP 03/29/18 08:20 03/29/18 08:00 Troponin, BNP 03/29/18 03/29/18 03/29/18 00:38 05:22 08:00 Troponin I 0.03 < 0.02 D < 0.02 Troponin, BNP 03/29/18 03/29/18 03/29/18 00:38 05:22 08:00 Troponin I 0.03 < 0.02 D < 0.02 Imaging - Results EKG: Image Reviewed (EKG: Sinus rhythm, LVH, inferolateral ST-T abnormalities.) Assessment/Plan 42 year old obese man with no known significant past medical history presented to ED 03/29/18 with severe hypertension. He was given hydralazine, Labetalol in ED. Nitroglycerin drip started. Head CT: microvascular changes EKG: Sinus rhythm, LVH, inferolateral ST-T abnormalities. Severe hypertension, likely chronic based on ECG abnormalities. May lower his BP gradually. 1) Start Metoprolol tartrate 50 mg twice daily. 2) Start Losartan-HCTZ 50-25mg daily. 3) Continue Amlodipine for now. 4) Taper off IV NTG. 5) May stop Lisinopril and labetalol. 6) Obtain an echocardiogram to evaluate his cardiac dimensions and function. We will follow with you.
[2018-03-29] MEDS: KCL 10 MEQ IVPB 10 MEQ/100 ML INFUS.BAG IVPB SCH ×3 (15:19→17:58)
[2018-03-29] MEDS: ATORVASTATIN CA 40 MG TABLET (FP) PO SCH (21:12)
[2018-03-29] MEDS: METOPROLOL TARTRATE 50 MG TABLET (FP) PO SCH (21:12)
[2018-03-30 06:58] LABS: ANION GAP 5 (8-16); BLOOD UREA NITROGEN 15 mg/dL (7-18); CALCIUM 8.7 mg/dL (8.5-10.1); CHLORIDE 106 mmol/L (98-107); CO2 30 mmol/L (21-32); CREATININE 1.2 mg/dL (0.7-1.3); GLUCOSE,RANDOM 80 mg/dL (74-106); POTASSIUM 3.7 mmol/L (3.5-5.1); SODIUM 141 mmol/L (136-145)
[2018-03-30] MEDS: HEPARIN NA (PORCINE) 5,000 UNITS/ML 1ML VIAL SQ SCH ×3 (07:02→22:55)
[2018-03-30] MEDS: NITROGLYCERIN 25MG/D5W 250ML 25 MG/250 ML ML IVPB SCH (07:43)
[2018-03-30] MEDS: POTASSIUM CHLORIDE TABS 20 MEQ TABLET.ER (FP) PO SCH (09:20)
[2018-03-30] MEDS: METOPROLOL TARTRATE 50 MG TABLET (FP) PO SCH ×2 (09:21→22:44)
[2018-03-30] MEDS: ASPIRIN 81 MG CHEWABLE TABLETS PO SCH (09:21)
[2018-03-30] MEDS: HYDROCHLOROTHIAZIDE 25 MG TABLET (FP) PO SCH (09:21)
[2018-03-30] MEDS: amLODIPine BESYLATE 10 MG TABLET (FP) PO SCH (09:21)
[2018-03-30] MEDS: LOSARTAN POTASSIUM 50 MG TABLET (FP) PO SCH (09:41)
[2018-03-30] MEDS ORDERED: LOSARTAN POTASSIUM 25 MG TABLET PO SCH (10:00)
[2018-03-30] MEDS ORDERED: LOSARTAN POTASSIUM 50 MG TABLET (FP) PO SCH (10:00)
--- NOTE | 2018-03-30 11:39 | CONSULT ---
Consult - text type - Consultation Consultation Note: Renal Consult for hypertensive urgency This is a 42 year old gentleman with Hx of hypertension who presented with elevated BP and found to have BP > 200/100. Pt reports checking his BP at home 3x this past week and it was > 220 systolic. He went to an urgent care and then [facility] referred to the ED. Pt is not on any anti-hypertensives at home. Denies taking any OTC meds, herbals. No Tobacco use. Denies any MORALES, dizziness, spells, flank pain. No Hx of renal disease. PMHx: as above Allergies: NKDA Family Hx: NC Social hx: no T/A/D ROS: As per HPI Home Medications Medication Instructions Recorded None 03/29/18 Vital Signs Temperature 98.6 F 03/30/18 02:00 Pulse Rate 75 03/30/18 09:20 Respiratory Rate 18 03/30/18 08:00 Blood Pressure 157/104 03/30/18 09:20 O2 Sat by Pulse Oximetry (%) 95 03/30/18 08:00 Intake & Output 03/27/18 03/28/18 03/29/18 03/30/18 23:59 23:59 23:59 23:59 Intake Total 20 Balance 20 Weight 116.12 kg 116.12 kg NAD awake and alert RRR, No M/R CTA, no rales or wheeze CBC, BMP 03/29/18 08:20 03/30/18 05:30 Current Medications Amlodipine Besylate (Norvasc -) 10 mg PO DAILY [facility] Last Admin: 03/30/18 09:21 Dose: 10 mg Aspirin (Asa -) 81 mg PO DAILY [facility] Last Admin: 03/30/18 09:21 Dose: 81 mg Atorvastatin Calcium (Lipitor -) 40 mg PO HS [facility] Last Admin: 03/29/18 21:12 Dose: 40 mg Heparin Sodium (Porcine) (Heparin -) 5,000 unit SQ TID [facility] Last Admin: 03/30/18 07:02 Dose: 5,000 unit Hydrochlorothiazide (Hctz -) 25 mg PO DAILY [facility] Last Admin: 03/30/18 09:21 Dose: 25 mg Losartan Potassium (Cozaar -) 100 mg PO DAILY [facility] Metoprolol Tartrate (Lopressor -) 50 mg PO BID [facility] Last Admin: 03/30/18 09:21 Dose: 50 mg 42 year old gentleman with Hx of hypertension who presented with elevated BP and found to have BP > 200/100. Pt reports checking his BP at home 3x this past week and it was > 220 systolic. #Hypertensive Urgency #Hypokalemia Etiology of hypertension likely essential hypertension that was not detected or treated. However given hypokalemia on presentation can consider primary hyperaldosteronism. Agree with Losartan/HCTZ/Metoprolol as advised by cardiology Check Renin/Aldosterone levels Taper off Nitro gtt Low salt diet, diet education Check UA and UPCR no renal imaging needed at this time will need to treat renal function on ARB Thank you Will follow Otoniel Coles DO
--- NOTE | 2018-03-30 11:53 | ECHO ---
Name: ELYSE CHOU Exam:Adult Echocardiogram Study Date: 03/30/2018 08:33 AM Age: 42 yrs Reason For Study: htn urgency Height: 72 in Weight: 256 lb BSA: 2.4 m2 MMode/2D Measurements & Calculations IVSd: 1.4 cm Ao root diam: 3.2 cm LVIDd: 4.8 cm LA dimension: 3.2 cm LVIDs: 3.2 cm LVPWd: 1.4 cm LVPWs: 1.9 cm EDV(Teich): 105.7 ml ESV(Teich): 42.0 ml Doppler Measurements & Calculations MV E max jesse: 95.3 cm/sec Ao V2 max: 157.1 cm/sec MV A max jesse: 57.3 cm/sec Ao max P.9 mmHg MV E/A: 1.7 MV dec time: 0.14 sec LV V1 max P.1 mmHg PA V2 max: 141.2 cm/sec LV V1 max: 112.5 cm/sec PA max P.0 mmHg Med Peak E' Jesse: 5.0 cm/sec Med E/e': 18.9 Lat Peak E' Jesse: 6.9 cm/sec Lat E/e': 13.8 Procedure The study was technically adequate with some images being suboptimal in quality. Left Ventricle The left ventricle is normal in size. There is mild concentric left ventricular hypertrophy. Left dary tricular systolic function is normal. Left Ventricular Filling pattern is normal for age. Right Ventricle The right ventricle is normal in size and function. Atria Normal left and right atrial size and function. Mitral Valve The mitral valve is grossly normal. There is trace mitral regurgitation. Tricuspid Valve The tricuspid valve is not well visualized, but is grossly normal. There is trace tricuspid regurgita tion. There was insufficient TR detected to calculate RV systolic pressure. Aortic Valve The aortic valve opens well. The aortic valve is normal in structure and function. Pulmonic Valve The pulmonic valve is not well visualized. There is no pulmonic valvular regurgitation. Great Vessels The aortic root is normal size. Pericardium/Pleura There is no pericardial effusion. Interpretation Summary There is no comparison study available. The left ventricle is normal in size. Left ventricular systolic function is normal. The right ventricle is normal in size and function. There is mild concentric left ventricular hypertrophy. Dallas Holland MD 03/30/2018 11:52 AM
--- NOTE | 2018-03-30 14:41 | PN ---
Physical Exam: SUBJECTIVE: Patient is a 42 y/o male with no medical history who presents with hypertensive urgency. Patient has no complaints today. No acute events overnight. OBJECTIVE: Vital Signs Period Temp Pulse Resp BP Sys/Celestin Pulse Ox Last 24 Hr 98.6 F-99.0 F 73-89 18-20 147-161/89-113 95-95 GENERAL: The patient is awake, alert, and fully oriented, in no acute distress. EYES: PERRL, extraocular movements intact. LUNGS: Breath sounds equal, clear to auscultation bilaterally HEART: Regular rate and rhythm, ABDOMEN: Soft, nontender, nondistended, normoactive bowel sounds EXTREMITIES: 2+ pulses, warm, well-perfused, no edema. NEUROLOGICAL: Normal speech, normal gait PSYCH: Normal mood, normal affect. SKIN: Warm, dry, normal turgor, no rashes or lesions noted Laboratory Results - last 24 hr 03/30/18 03/30/18 03/30/18 05:30 05:30 10:00 Sodium 141 Potassium 3.7 Chloride 106 Carbon Dioxide 30 Anion Gap 5 L BUN 15 Creatinine 1.2 Creat Clearance w eGFR > 60 Random Glucose 80 D Calcium 8.7 Blood Type O POSITIVE O POSITIVE Antibody Screen Negative Active Medications Generic Name Dose Route Start Last Admin Trade Name Freq PRN Reason Stop Dose Admin Amlodipine Besylate 10 mg 03/29/18 10:00 03/30/18 09:21 Norvasc - PO 10 mg DAILY [facility] Administration Aspirin 81 mg 03/29/18 13:00 03/30/18 09:21 Asa - PO 81 mg DAILY [facility] Administration Atorvastatin Calcium 40 mg 03/29/18 22:00 03/29/18 21:12 Lipitor - PO 40 mg HS [facility] Administration Heparin Sodium (Porcine) 5,000 unit 03/29/18 06:30 03/30/18 13:41 Heparin - SQ 5,000 unit TID [facility] Administration Hydrochlorothiazide 25 mg 03/30/18 10:00 03/30/18 09:21 Hctz - PO 25 mg DAILY [facility] Administration Losartan Potassium 100 mg 03/30/18 10:00 03/30/18 09:41 Cozaar - PO 100 mg DAILY [facility] Administration Metoprolol Tartrate 100 mg 03/30/18 14:37 Lopressor - PO BID [facility] ASSESSMENT/PLAN: Patient is a 42 y/o male with no medical history who presents with hypertensive urgency. #Hypertensive Urgency - Nitroglycerin drip - Nifedipine 60 mg daily - Metoprolol tartrate 100 mg twice daily - Losartan-HCTZ 100-25mg daily - aspirin 81 mg - atorvastatin 40 po hs - echo- LV systolic function normal, RV normal in size and function, mild LVH - Cardio consult; Dr. Mullen - Nephro consult; Devang; f/u renin/aldosterone levels to r/o primary hyperaldosteronism - trop negative x 2 - EKG : LVH, diffuse Twave inversion, ST depression - Head CT: supratentrial chronic white matter microangiopathic ischemic changes, no evidence of infarction - most recent BP 157/107 #obestiy - dietary consult - f/u lipid panel - low salt diet FEN -replete K Dispo: possibly tomorrow if stable BP, sleep study outpatient Visit type - Emergency Visit Emergency Visit: No - New Patient This patient is new to me today: No - Critical Care Critical Care patient: No
--- NOTE | 2018-03-30 14:53 | PN ---
Progress Note, Physician Chief Complaint: Patient appears comfortable. He reports no chest pain, SOB or palpitation. Tele showed episodes of sinus bradycardia at 9:00 PM yesterday and 7:00 AM today. His average heart rate is around 75 BPM now. History of Present Illness: 42 year old obese man with no known significant past medical history presented to ED 03/29/18 with severe hypertension. He was given hydralazine, Labetalol in ED. Nitroglycerin drip started. Head CT: microvascular changes EKG: Sinus rhythm, LVH, inferolateral ST-T abnormalities. - Current Medication List Current Medications: Active Medications Amlodipine Besylate (Norvasc -) 10 mg PO DAILY [facility] Last Admin: 03/30/18 09:21 Dose: 10 mg Aspirin (Asa -) 81 mg PO DAILY [facility] Last Admin: 03/30/18 09:21 Dose: 81 mg Atorvastatin Calcium (Lipitor -) 40 mg PO HS [facility] Last Admin: 03/29/18 21:12 Dose: 40 mg Heparin Sodium (Porcine) (Heparin -) 5,000 unit SQ TID [facility] Last Admin: 03/30/18 13:41 Dose: 5,000 unit Hydrochlorothiazide (Hctz -) 25 mg PO DAILY [facility] Last Admin: 03/30/18 09:21 Dose: 25 mg Losartan Potassium (Cozaar -) 100 mg PO DAILY [facility] Last Admin: 03/30/18 09:41 Dose: 100 mg Metoprolol Tartrate (Lopressor -) 100 mg PO BID [facility] - Objective Vital Signs: Vital Signs Temperature 98.6 F 03/30/18 02:00 Pulse Rate 81 03/30/18 13:39 Respiratory Rate 18 03/30/18 08:00 Blood Pressure 157/107 03/30/18 13:39 O2 Sat by Pulse Oximetry (%) 95 03/30/18 08:00 General: Well developed. Obese. No acute distress. Head: Normocephalic. Atraumatic, Eyes: PERRLA, EOMI. Sclerae anicteric. Conjunctivae clear. Neck: Supple. No JVD. No bruits. Heart: Normal S1, S2: Regularly regular rhythm and rate. No murmur. No gallop or rub. Lungs: Symmetrical air entry. Clear to auscultation. No crackle. No wheezing or rhonchi. Abdomen: Soft. Bowel sound positive. Non tender. No masses. Extremities: No edema. No clubbing or cyanosis. PD 2+, equal bilaterally. Neuro: Intact, no focal findings. AAO X3. Labs: CBC, BMP 03/29/18 08:20 03/30/18 05:30 Assessment/Plan 42 year old obese man with no known significant past medical history presented to ED 03/29/18 with severe hypertension. He was given hydralazine, Labetalol in ED. Nitroglycerin drip started. Head CT: microvascular changes EKG: Sinus rhythm, LVH, inferolateral ST-T abnormalities. Severe hypertension, likely chronic based on ECG abnormalities. BP controlled improved. 1) Could continue Metoprolol tartrate 100 mg twice daily. The bradycardia could be caused by obstructive sleep apnea (He was sleeping at the time of bradycardia ). 2) Continue Losartan and HCTZ. 3) May chanage Amlodipine to Nifedipine 60 mg daily. 4) Obtain an echocardiogram to evaluate his cardiac dimensions and function. 5) Out patient sleep study. We will follow with you.
--- NOTE | 2018-03-30 20:27 | PN ---
Teaching Attending Note Name of Resident: Shruti Luciano ATTENDING PHYSICIAN STATEMENT I saw and evaluated the patient. I reviewed the resident's note and discussed the case with the resident. I agree with the resident's findings and plan as documented. SUBJECTIVE: Patient is comfortable no acute distress, no shortness of breath, no nausea or vomiting. OBJECTIVE: Vital Signs Temperature 98.4 F 03/30/18 17:25 Pulse Rate 73 03/30/18 17:34 Respiratory Rate 18 03/30/18 17:34 Blood Pressure 145/88 03/30/18 17:34 O2 Sat by Pulse Oximetry (%) 95 03/30/18 08:00 HEENT: No Jaundice, eye redness or discharge, No papilledema. PERRLA, EOMI. Normocephalic, atraumatic. External ears are normal and hearing is grossly intact. No nasal discharge. Neck: Supple, nontender. No palpable adenopathy or thyromegaly. No JVD Chest: Good effort. Clear to auscultation and percussion. Heart: RRR, Regular. No S3, rub or murmur Abdomen: Not distended, soft, nontender and no HSM. No rebound or guarding. Normoactive bowel sounds. Ext: Peripheral pulses intact. No leg edema. Skin: Warm and dry. No petechiae, rash or ecchymosis. Neuro: Alert. Oriented x3. CN 2-12 grossly intact. Sensation grossly intact in all four extremities and DTR are symmetric. CBCD WBC 5.1 K/mm3 (4.0-10.0) 03/29/18 08:20 RBC 5.49 M/mm3 (4.00-5.60) 03/29/18 08:20 Hgb 15.3 GM/dL (11.7-16.9) 03/29/18 08:20 Hct 45.2 % (35.4-49) 03/29/18 08:20 MCV 82.3 fl (80-96) 03/29/18 08:20 MCHC 33.9 g/dl (32.0-35.9) 03/29/18 08:20 RDW 14.0 % (11.9-15.9) 03/29/18 08:20 Plt Count 180 K/MM3 (134-434) 03/29/18 08:20 MPV 10.5 fl (7.5-11.1) 03/29/18 08:20 CMP Sodium 141 mmol/L (136-145) 03/30/18 05:30 Potassium 3.7 mmol/L (3.5-5.1) 03/30/18 05:30 Chloride 106 mmol/L (98-107) 03/30/18 05:30 Carbon Dioxide 30 mmol/L (21-32) 03/30/18 05:30 Anion Gap 5 (8-16) L 03/30/18 05:30 BUN 15 mg/dL (7-18) 03/30/18 05:30 Creatinine 1.2 mg/dL (0.7-1.3) 03/30/18 05:30 Creat Clearance w eGFR > 60 (>60) 03/30/18 05:30 Random Glucose 80 mg/dL (74-106) D 03/30/18 05:30 Calcium 8.7 mg/dL (8.5-10.1) 03/30/18 05:30 Total Bilirubin 0.6 mg/dL (0.2-1.0) 03/29/18 08:00 AST 27 U/L (15-37) 03/29/18 08:00 ALT 45 U/L (12-78) 03/29/18 08:00 Alkaline Phosphatase 82 U/L (45-117) 03/29/18 08:00 Total Protein 8.5 g/dl (6.4-8.2) H 03/29/18 08:00 Albumin 4.3 g/dl (3.4-5.0) 03/29/18 08:00 CARDIAC ENZYMES Creatine Kinase 174 IU/L (39-308) 03/29/18 08:00 Troponin I < 0.02 ng/ml (0.00-0.05) 03/29/18 08:00 Current Medications Generic Name Dose Route Start Last Admin Trade Name Freq PRN Reason Stop Dose Admin Aspirin 81 mg 03/29/18 13:00 03/30/18 09:21 Asa - PO 81 mg DAILY [facility] Administration Atorvastatin Calcium 40 mg 03/29/18 22:00 03/29/18 21:12 Lipitor - PO 40 mg HS [facility] Administration Heparin Sodium (Porcine) 5,000 unit 03/29/18 06:30 03/30/18 13:41 Heparin - SQ 5,000 unit TID [facility] Administration Hydrochlorothiazide 25 mg 03/30/18 10:00 03/30/18 09:21 Hctz - PO 25 mg DAILY [facility] Administration Losartan Potassium 100 mg 03/30/18 10:00 03/30/18 09:41 Cozaar - PO 100 mg DAILY [facility] Administration Metoprolol Tartrate 100 mg 03/30/18 22:00 Lopressor - PO BID [facility] Nifedipine 60 mg 03/31/18 10:00 Procardia Xl - PO DAILY [facility] Home Medications Medication Instructions Recorded Hydrochlorothiazide 25 mg PO DAILY 03/29/[address]: supratentrial chronic white matter microangiopathic ischemic changes, no evidence of infarction. ASSESSMENT AND PLAN: Patient is a 42 year old man with no significant PMHx who presents for evaluation of elevated blood pressure. # Hypertensive Urgency - patient was evaluated by rural electrification engineer, added lopressor by rural electrification engineer , procardia xl, losartan, Hctz. echo ordered, nephro consult appreciated. Patient will need Echo. as an outpatient. #Sleep apnea: questionable obstructive sleep apnea, needs to be evaluated by boiler technician dr. Hardin. # Obesity - Will provide patient all the necessary assistance , counseling and positive reinforcement to facilitate weight loss. Consult institutional nutrition consultant. DVT prophylaxis - Heparin 5000u sq tid. Advance directives - Full code
[2018-03-30] MEDS: ATORVASTATIN CA 40 MG TABLET (FP) PO SCH (22:55)
[2018-03-31] MEDS: HEPARIN NA (PORCINE) 5,000 UNITS/ML 1ML VIAL SQ SCH ×3 (05:51→22:07)
[2018-03-31 07:00] LABS: MCH 28.1 pg (25.7-33.7); MCHC 34.1 g/dl (32.0-35.9); MEAN CELL VOLUME 82.3 fl (80-96); MEAN PLT VOLUME 11.1 fl (7.5-11.1); PLATELET COUNT 161 K/MM3 (134-434); RBC 5.35 M/mm3 (4.00-5.60); RDW 14.3 % (11.9-15.9); WHITE BLOOD COUNT 5.6 K/mm3 (4.0-10.0)
[2018-03-31 07:25] LABS: CHLORIDE 104 mmol/L (98-107); SODIUM 141 mmol/L (136-145)
[2018-03-31 08:02] LABS: ANION GAP 10 (8-16); BLOOD UREA NITROGEN 20 mg/dL (7-18); CALCIUM 9.7 mg/dL (8.5-10.1); CO2 27 mmol/L (21-32); CREATININE 1.3 mg/dL (0.7-1.3); GLUCOSE,RANDOM 74 mg/dL (74-106)
[2018-03-31] MEDS: LOSARTAN POTASSIUM 50 MG TABLET (FP) PO SCH (09:25)
[2018-03-31] MEDS: HYDROCHLOROTHIAZIDE 25 MG TABLET (FP) PO SCH (09:25)
[2018-03-31] MEDS: ASPIRIN 81 MG CHEWABLE TABLETS PO SCH (09:25)
[2018-03-31] MEDS: NIFEdipine E.R 60 MG TABLET (UD) PO SCH (09:26)
[2018-03-31] MEDS: METOPROLOL TARTRATE 50 MG TABLET (FP) PO SCH (09:26)
--- NOTE | 2018-03-31 13:00 | PN ---
Progress Note (short form) - Note Progress Note: Renal follow up for hypertensive urgency Pt seen and examined at the bedside awake and alert no acute complaints denies any dizziness, cp, sob, abd pain, N/V Vital Signs Temperature 98 F 03/31/18 08:16 Pulse Rate 82 03/31/18 10:51 Respiratory Rate 18 03/31/18 08:16 Blood Pressure 157/83 03/31/18 10:51 O2 Sat by Pulse Oximetry (%) 96 03/31/18 08:16 Intake & Output 03/28/18 03/29/18 03/30/18 03/31/18 23:59 23:59 23:59 23:59 Intake Total 286 250 Balance 286 250 Weight 116.12 kg 116.12 kg 116.12 kg NAD RRR CTA No LE edema CBC, BMP 03/31/18 05:30 03/31/18 05:30 Current Medications Aspirin (Asa -) 81 mg PO DAILY [facility] Last Admin: 03/31/18 09:25 Dose: 81 mg Atorvastatin Calcium (Lipitor -) 40 mg PO HS [facility] Last Admin: 03/30/18 22:55 Dose: 40 mg Heparin Sodium (Porcine) (Heparin -) 5,000 unit SQ TID [facility] Last Admin: 03/31/18 05:51 Dose: 5,000 unit Hydrochlorothiazide (Hctz -) 25 mg PO DAILY [facility] Last Admin: 03/31/18 09:25 Dose: 25 mg Losartan Potassium (Cozaar -) 100 mg PO DAILY [facility] Last Admin: 03/31/18 09:25 Dose: 100 mg Metoprolol Tartrate (Lopressor -) 100 mg PO BID [facility] Last Admin: 03/31/18 09:26 Dose: Not Given Nifedipine (Procardia Xl -) 60 mg PO DAILY [facility] Last Admin: 03/31/18 09:26 Dose: 60 mg 42 year old gentleman with Hx of hypertension who presented with elevated BP and found to have BP > 200/100. Pt reports checking his BP at home 3x this past week and it was > 220 systolic. #Hypertensive Urgency #Hypokalemia BP improved on Losatan/HCTZ/Metoprolol Nifedpine added today US of kidney shows normal and symmetric kidneys Renin/Aldosterone levels pending if BP remains stable can plan for discharge with outpatient follow up Otoniel Coles DO
--- NOTE | 2018-03-31 13:38 | PN ---
Progress Note, Physician Chief Complaint: no new complaints tele with sinus bia and pauses up to 3.4 sec. History of Present Illness: 42 year old obese man with no known significant past medical history presented to ED 03/29/18 with severe hypertension. He was given hydralazine, Labetalol in ED. Nitroglycerin drip started. Head CT: microvascular changes EKG: Sinus rhythm, LVH, inferolateral ST-T abnormalities. Echo 03/30/18: normal EF, trace MR/TR - Current Medication List Current Medications: Active Medications Aspirin (Asa -) 81 mg PO DAILY [facility] Last Admin: 03/31/18 09:25 Dose: 81 mg Atorvastatin Calcium (Lipitor -) 40 mg PO HS [facility] Last Admin: 03/30/18 22:55 Dose: 40 mg Heparin Sodium (Porcine) (Heparin -) 5,000 unit SQ TID [facility] Last Admin: 03/31/18 05:51 Dose: 5,000 unit Hydrochlorothiazide (Hctz -) 25 mg PO DAILY [facility] Last Admin: 03/31/18 09:25 Dose: 25 mg Losartan Potassium (Cozaar -) 100 mg PO DAILY [facility] Last Admin: 03/31/18 09:25 Dose: 100 mg Metoprolol Tartrate (Lopressor -) 100 mg PO BID [facility] Last Admin: 03/31/18 09:26 Dose: Not Given Nifedipine (Procardia Xl -) 60 mg PO DAILY [facility] Last Admin: 03/31/18 09:26 Dose: 60 mg - Objective Vital Signs: Vital Signs Temperature 98 F 03/31/18 08:16 Pulse Rate 82 03/31/18 10:51 Respiratory Rate 18 03/31/18 08:16 Blood Pressure 157/83 03/31/18 10:51 O2 Sat by Pulse Oximetry (%) 96 03/31/18 08:16 Constitutional: Yes: No Distress Eyes: Yes: Conjunctiva Clear HENT: Yes: Atraumatic, Normocephalic Neck: Yes: Supple, Trachea Midline Cardiovascular: Yes: Regular Rate and Rhythm Respiratory: Yes: CTA Bilaterally Gastrointestinal: Yes: Normal Bowel Sounds Extremities: Yes: WNL Edema: No Peripheral Pulses WNL: Yes Labs: CBC, BMP 03/31/18 05:30 03/31/18 05:30 Problem List - Problems (1) Uncontrolled hypertension Assessment/Plan: Continue Losartan and HCTZ. If bp increases add minoxidil 5 mg daily or hydralazine 25 mg q8h. Continue Nifedipine 60 mg daily. Will need out patient sleep study, but consider the empiric use of CPAP while in hospital. Code(s): I10 - ESSENTIAL (PRIMARY) HYPERTENSION (2) Bradycardia Assessment/Plan: Most likely due to hypoxia and sleep apnea. Hold all beta blockers and negative chronotropic agents. Code(s): R00.1 - BRADYCARDIA, UNSPECIFIED
--- NOTE | 2018-03-31 18:54 | PN ---
Physical Exam: SUBJECTIVE: Patient seen and examined Patient is comfortable with no acute distress. OBJECTIVE: Vital Signs Temperature 98.2 F 03/31/18 17:05 Pulse Rate 94 H 03/31/18 17:05 Respiratory Rate 18 03/31/18 17:05 Blood Pressure 143/75 03/31/18 17:05 O2 Sat by Pulse Oximetry (%) 96 03/31/18 08:16 GENERAL: The patient is awake, alert, and fully oriented, in no acute distress. HEAD: Normal with no signs of trauma. EYES: PERRL, extraocular movements intact, sclera anicteric, conjunctiva clear. ENT: Ears normal, oropharynx clear without exudates, moist mucous membranes. NECK: Trachea midline, full range of motion, supple. LUNGS: Breath sounds equal, clear to auscultation bilaterally, no wheezes, no crackles, no accessory muscle use. HEART: Regular rate and rhythm, S1, S2 without murmur, rub or gallop. ABDOMEN: Soft, nontender, nondistended, normoactive bowel sounds, no guarding, no rebound, no hepatosplenomegaly, no masses. EXTREMITIES: 2+ pulses, warm, well-perfused, no edema. NEUROLOGICAL: Cranial nerves II through XII grossly intact. Normal speech, gait not observed. PSYCH: Normal mood, normal affect. SKIN: Warm, dry, normal turgor, no rashes or lesions noted Active Medications Generic Name Dose Route Start Last Admin Trade Name Freq PRN Reason Stop Dose Admin Aspirin 81 mg 03/29/18 13:00 03/31/18 09:25 Asa - PO 81 mg DAILY [facility] Administration Atorvastatin Calcium 40 mg 03/29/18 22:00 03/30/18 22:55 Lipitor - PO 40 mg HS [facility] Administration Heparin Sodium (Porcine) 5,000 unit 03/29/18 06:30 03/31/18 14:11 Heparin - SQ 5,000 unit TID [facility] Administration Hydrochlorothiazide 25 mg 03/30/18 10:00 03/31/18 09:25 Hctz - PO 25 mg DAILY [facility] Administration Losartan Potassium 100 mg 03/30/18 10:00 03/31/18 09:25 Cozaar - PO 100 mg DAILY [facility] Administration Nifedipine 60 mg 03/31/18 10:00 03/31/18 09:26 Procardia Xl - PO 60 mg DAILY [facility] Administration Home Medications Medication Instructions Recorded Hydrochlorothiazide 25 mg PO DAILY 03/29/18 CBCD WBC 5.6 K/mm3 (4.0-10.0) 03/31/18 05:30 RBC 5.35 M/mm3 (4.00-5.60) 03/31/18 05:30 Hgb 15.0 GM/dL (11.7-16.9) 03/31/18 05:30 Hct 44.0 % (35.4-49) 03/31/18 05:30 MCV 82.3 fl (80-96) 03/31/18 05:30 MCHC 34.1 g/dl (32.0-35.9) 03/31/18 05:30 RDW 14.3 % (11.9-15.9) 03/31/18 05:30 Plt Count 161 K/MM3 (134-434) 03/31/18 05:30 MPV 11.1 fl (7.5-11.1) 03/31/18 05:30 CMP Sodium 141 mmol/L (136-145) 03/31/18 05:30 Potassium 4.0 mmol/L (3.5-5.1) 03/31/18 05:30 Chloride 104 mmol/L (98-107) 03/31/18 05:30 Carbon Dioxide 27 mmol/L (21-32) 03/31/18 05:30 Anion Gap 10 (8-16) 03/31/18 05:30 BUN 20 mg/dL (7-18) H 03/31/18 05:30 Creatinine 1.3 mg/dL (0.7-1.3) 03/31/18 05:30 Creat Clearance w eGFR > 60 (>60) 03/31/18 05:30 Random Glucose 74 mg/dL (74-106) 03/31/18 05:30 Calcium 9.7 mg/dL (8.5-10.1) 03/31/18 05:30 Total Bilirubin 0.6 mg/dL (0.2-1.0) 03/29/18 08:00 AST 27 U/L (15-37) 03/29/18 08:00 ALT 45 U/L (12-78) 03/29/18 08:00 Alkaline Phosphatase 82 U/L (45-117) 03/29/18 08:00 Total Protein 8.5 g/dl (6.4-8.2) H 03/29/18 08:00 Albumin 4.3 g/dl (3.4-5.0) 03/29/18 08:00 CARDIAC ENZYMES Creatine Kinase 174 IU/L (39-308) 03/29/18 08:00 Troponin I < 0.02 ng/ml (0.00-0.05) 03/29/18 08:[address]: supratentrial chronic white matter microangiopathic ischemic changes, no evidence of infarction. ASSESSMENT AND PLAN: Patient is a 42 year old man with no significant PMHx who presents for evaluation of elevated blood pressure. # Hypertensive Urgency : Patient was evaluated by disabilities caregiver, lopressor was discontinued by disabilities caregiver since patient developed pauses which was found on the monitor 3.8 sec.pauses.will monitor , procardia xl, losartan, Hctz. echo ordered, nephro consult appreciated. Patient will need Echo. as an outpatient. Patient became bia 3.8 pauses last night, metoprolol was discontinued by disabilities caregiver , will monitor since patient's HR is in 90's now. #Sleep apnea: questionable obstructive sleep apnea, needs to be evaluated by retail interior designer dr. Hardin. # Obesity - Will provide patient all the necessary assistance , counseling and positive reinforcement to facilitate weight loss. Consult monitoring manager. DVT prophylaxis - Heparin 5000u sq tid. Advance directives - Full code Visit type - Emergency Visit Emergency Visit: Yes ED Registration Date: 03/29/18 Care time: The patient presented to the Emergency Department on the above date and was hospitalized for further evaluation of their emergent condition. - New Patient This patient is new to me today: No - Critical Care Critical Care patient: No - Discharge Referral Referred to [facility] Med P.C.: No
[2018-03-31] MEDS: ATORVASTATIN CA 40 MG TABLET (FP) PO SCH (22:07)
[2018-04-01] MEDS: HEPARIN NA (PORCINE) 5,000 UNITS/ML 1ML VIAL SQ SCH (05:56)
[2018-04-01 07:59] LABS: ANION GAP 9 (8-16); BLOOD UREA NITROGEN 19 mg/dL (7-18); CALCIUM 9.3 mg/dL (8.5-10.1); CHLORIDE 99 mmol/L (98-107); CO2 28 mmol/L (21-32); CREATININE 1.4 mg/dL (0.7-1.3); GLUCOSE,RANDOM 78 mg/dL (74-106); POTASSIUM 3.7 mmol/L (3.5-5.1); SODIUM 136 mmol/L (136-145)
[2018-04-01 08:44] VITALS: BP 147/91; PULSE 80; TEMP 98.3
--- NOTE | 2018-04-01 08:58 | EKG ---
Test Reason : Blood Pressure : / mmHG Vent. Rate : 076 BPM Atrial Rate : 076 BPM P-R Int : 178 ms QRS Dur : 106 ms QT Int : 384 ms P-R-T Axes : 050 -13 162 degrees QTc Int : 432 ms NORMAL SINUS RHYTHM POSSIBLE LEFT ATRIAL ENLARGEMENT LEFT VENTRICULAR HYPERTROPHY WITH REPOLARIZATION ABNORMALITY ABNORMAL ECG WHEN COMPARED WITH ECG OF 29-MAR-2018 09:42, NO SIGNIFICANT CHANGE WAS FOUND Confirmed by LUISANA MCKINNEY, LESLI ([id number]) on 04/01/2018 8:58:20 AM [facility] Confirmed By:LESLI LIEBERMAN MD
[2018-04-01] MEDS: LOSARTAN POTASSIUM 50 MG TABLET (FP) PO SCH (09:33)
[2018-04-01] MEDS: HYDROCHLOROTHIAZIDE 25 MG TABLET (FP) PO SCH (09:33)
[2018-04-01] MEDS: ASPIRIN 81 MG CHEWABLE TABLETS PO SCH (09:33)
[2018-04-01] MEDS: NIFEdipine E.R 60 MG TABLET (UD) PO SCH (09:34)
--- NOTE | 2018-04-01 11:01 | PN ---
Progress Note (short form) - Note Progress Note: Renal follow up for hypertensive urgency Pt seen and examined at the bedside feels well, no MORALES, dizziness, CP, SOB, abd pain making urine Vital Signs Temperature 98.3 F 04/01/18 08:43 Pulse Rate 80 04/01/18 08:43 Respiratory Rate 20 04/01/18 08:43 Blood Pressure 147/91 04/01/18 08:43 O2 Sat by Pulse Oximetry (%) 95 03/31/18 21:00 Intake & Output 03/29/18 03/30/18 03/31/18 04/01/18 23:59 23:59 23:59 23:59 Intake Total 286 630 370 Balance 286 630 370 Weight 116.12 kg 116.12 kg NAD RRR CTA No LE edema CBC, BMP 03/31/18 05:30 04/01/18 06:10 Current Medications Aspirin (Asa -) 81 mg PO DAILY [facility] Last Admin: 04/01/18 09:33 Dose: 81 mg Atorvastatin Calcium (Lipitor -) 40 mg PO HS [facility] Last Admin: 03/31/18 22:07 Dose: 40 mg Heparin Sodium (Porcine) (Heparin -) 5,000 unit SQ TID [facility] Last Admin: 04/01/18 05:56 Dose: 5,000 unit Hydrochlorothiazide (Hctz -) 25 mg PO DAILY [facility] Last Admin: 04/01/18 09:33 Dose: 25 mg Losartan Potassium (Cozaar -) 100 mg PO DAILY [facility] Last Admin: 04/01/18 09:33 Dose: 100 mg Nifedipine (Procardia Xl -) 60 mg PO DAILY [facility] Last Admin: 04/01/18 09:34 Dose: 60 mg 42 year old gentleman with Hx of hypertension who presented with elevated BP and found to have BP > 200/100. Pt reports checking his BP at home 3x this past week and it was > 220 systolic. #Hypertensive Urgency #Hypokalemia BP has improved to near goal on Losartan/Nifedpine/HCTZ Cr vernon to 1.2 but expected in setting of BP control and ARB stable to be discharged and follow up as outpatient Renin/Aldosterone pending Low salt diet on discharge Otoniel Coles DO
--- NOTE | 2018-04-01 11:35 | DS ---
Physical Exam: SUBJECTIVE: Patient seen and examined Patient is comfortable with no acute distress. wants to go home. OBJECTIVE: Vital Signs Temperature 98.3 F 04/01/18 08:43 Pulse Rate 80 04/01/18 08:43 Respiratory Rate 20 04/01/18 08:43 Blood Pressure 147/91 04/01/18 08:43 O2 Sat by Pulse Oximetry (%) 97 04/01/18 09:00 PHYSICAL EXAM GENERAL: The patient is awake, alert, and fully oriented, in no acute distress. HEAD: Normal with no signs of trauma. EYES: PERRL, extraocular movements intact, sclera anicteric, conjunctiva clear. ENT: Ears normal, oropharynx clear without exudates, moist mucous membranes. NECK: Trachea midline, full range of motion, supple. LUNGS: Breath sounds equal, clear to auscultation bilaterally, no wheezes, no crackles, no accessory muscle use. HEART: Regular rate and rhythm, S1, S2 without murmur, rub or gallop. ABDOMEN: Soft, nontender, nondistended, normoactive bowel sounds, no guarding, no rebound, no hepatosplenomegaly, no masses. EXTREMITIES: 2+ pulses, warm, well-perfused, no edema. NEUROLOGICAL: Cranial nerves II through XII grossly intact. Normal speech, gait not observed. PSYCH: Normal mood, normal affect. SKIN: Warm, dry, normal turgor, no rashes or lesions noted. LABS Laboratory Results - last 24 hr 04/01/18 06:10 Sodium 136 Potassium 3.7 Chloride 99 Carbon Dioxide 28 Anion Gap 9 BUN 19 H Creatinine 1.4 H Creat Clearance w eGFR 56.13 Random Glucose [address]: supratentrial chronic white matter microangiopathic ischemic changes, no evidence of infarction. HOSPITAL COURSE: Date of Admission:03/29/18 Date of Discharge: 04/01/18 Patient is a 42 year old man with no significant PMHx who presents for evaluation of elevated blood pressure. # Hypertensive Urgency : Patient was evaluated by load checker, lopressor was discontinued by load checker since patient developed pauses which was found on the monitor 3.8 sec.but last night was 2.2 pauses , discussed with load checker ok to discharge the patient , Discontinued Lopressor. Continue taking the prescribe blood pressure medications. Patient was suggested to have: *Low fat , low sodium diet , Loss weight will be ideal for better control the blood pressure. please follow with within a week period for further care Please follow with dr. RAMOS puLMONARY DOCTOR FOR SLEEP STUDIES, iT IS VERY IMPORTANT TO HAVE THIS SLEEP STUDY DONE PLEASE CALLTHE OFFICE AND MAKE AN APPOINTMENT. follow with nephrology since you need a further kidney work since have a elevated Blood pressure for a while that will injure your kidneys. Please follow with for further care. DO NOT TAKE ANY B-BLOCKERS SUCH TOPROL/LOPRESSOR/TENORMIN #Sleep apnea: questionable obstructive sleep apnea, needs to be evaluated by controller mechanic dr. Hardin. # Obesity - Will provide patient all the necessary assistance , counseling and positive reinforcement to facilitate weight loss. Consult lead game designer. 45 mintutes Minutes to complete discharge: 45 Discharge Summary Reason For Visit: UNCONTROLLED HYPERTENSION Current Active Problems Bradycardia (Acute) Condition: Stable - Instructions Diet, Activity, Other Instructions: Low fat , low sodium diet , Loss weight will be ideal for better control the blood pressure. please follow with within a week period for further care Please follow with dr. RAMOS puLMONARY DOCTOR FOR SLEEP STUDIES, iT IS VERY IMPORTANT TO HAVE THIS SLEEP STUDY DONE PLEASE CALLTHE OFFICE AND MAKE AN APPOINTMENT. follow with nephrology since you need a further kidney work since have a elevated Blood pressure for a while that will injure your kidneys. Please follow with for further care. DO NOT TAKE ANY B-BLOCKERS SUCH TOPROL/LOPRESSOR/TENORMIN Referrals: Braulio Mullen MD [Staff Physician] - 1 Week Omar Yu MD [Staff Physician] - 1 Week Otoniel Siddiqi MD [Staff Physician] - 1 Week Disposition: HOME - Home Medications Comprehensive Discharge Medication List: Ambulatory Orders Hydrochlorothiazide 25 mg PO DAILY 03/29/18 This patient is new to me today: No Emergency Visit: Yes ED Registration Date: 03/29/18 Care time: The patient presented to the Emergency Department on the above date and was hospitalized for further evaluation of their emergent condition. Critical Care patient: No - Discharge Referral [facility] No
--- NOTE | 2018-04-01 13:29 | PN ---
Progress Note, Physician Chief Complaint: no new complaints tele with sinus bia and pauses less than 3 sec. History of Present Illness: 42 year old obese man with no known significant past medical history presented to ED 03/29/18 with severe hypertension. He was given hydralazine, Labetalol in ED. Nitroglycerin drip started. Head CT: microvascular changes EKG: Sinus rhythm, LVH, inferolateral ST-T abnormalities. Echo 03/30/18: normal EF, trace MR/TR - Current Medication List Current Medications: Active Medications Aspirin (Asa -) 81 mg PO DAILY [facility] Last Admin: 04/01/18 09:33 Dose: 81 mg Atorvastatin Calcium (Lipitor -) 40 mg PO HS [facility] Last Admin: 03/31/18 22:07 Dose: 40 mg Heparin Sodium (Porcine) (Heparin -) 5,000 unit SQ TID [facility] Last Admin: 04/01/18 05:56 Dose: 5,000 unit Hydrochlorothiazide (Hctz -) 25 mg PO DAILY [facility] Last Admin: 04/01/18 09:33 Dose: 25 mg Losartan Potassium (Cozaar -) 100 mg PO DAILY [facility] Last Admin: 04/01/18 09:33 Dose: 100 mg Nifedipine (Procardia Xl -) 60 mg PO DAILY [facility] Last Admin: 04/01/18 09:34 Dose: 60 mg - Objective Vital Signs: Vital Signs Temperature 98.3 F 04/01/18 08:43 Pulse Rate 80 04/01/18 08:43 Respiratory Rate 20 04/01/18 08:43 Blood Pressure 147/91 04/01/18 08:43 O2 Sat by Pulse Oximetry (%) 97 04/01/18 09:00 Constitutional: Yes: No Distress, Calm, Obese Eyes: Yes: EOM Intact HENT: Yes: Normocephalic Neck: Yes: Trachea Midline Cardiovascular: Yes: Regular Rate and Rhythm Respiratory: Yes: CTA Bilaterally Gastrointestinal: Yes: Normal Bowel Sounds, Abdomen, Obese Extremities: Yes: WNL Labs: CBC, BMP 03/31/18 05:30 04/01/18 06:10 Problem List - Problems (1) Uncontrolled hypertension Assessment/Plan: Continue Losartan and HCTZ. If bp increases add minoxidil 5 mg daily or hydralazine 25 mg q8h. Continue Nifedipine 60 mg daily. Will need out patient sleep study, but consider the empiric use of CPAP while in hospital. Code(s): I10 - ESSENTIAL (PRIMARY) HYPERTENSION (2) Bradycardia Assessment/Plan: Most likely due to hypoxia and sleep apnea. Hold all beta blockers and negative chronotropic agents. would consider more urgent CPAP evaluation and treatment. Code(s): R00.1 - BRADYCARDIA, UNSPECIFIED
--- NOTE | 2018-04-02 07:52 | EKG ---
Test Reason : Blood Pressure : / mmHG Vent. Rate : 080 BPM Atrial Rate : 080 BPM P-R Int : 184 ms QRS Dur : 104 ms QT Int : 404 ms P-R-T Axes : 055 -09 163 degrees QTc Int : 465 ms NORMAL SINUS RHYTHM WITH SINUS ARRHYTHMIA BIATRIAL ENLARGEMENT LEFT VENTRICULAR HYPERTROPHY WITH REPOLARIZATION ABNORMALITY ABNORMAL ECG WHEN COMPARED WITH ECG OF 29-MAR-2018 05:23, NO SIGNIFICANT CHANGE WAS FOUND Confirmed by [place] MCKINNEY, AGUSTINA ([id number]) on 03/29/2018 12:45:05 PM Referred By: Confirmed By:AGUSTINA HO MD
[2018-04-04 16:35] LABS: RENIN ACTIVITY(PRA) 2.538 ng/mL/hr (0.167-5.380)
== END 2018-04-01 15:34 | disposition home or self-care (01) | DRG 199 ==
LOC: JER 22:33 → JERBED 03-29 05:30 → UNDOADMIN 03-29 05:30 → JERBED 03-29 05:46 → J4W 03-29 20:27
PROVIDERS: ADMIT Internal Medicine; ATTEND Internal Medicine
DX: I16.0 Hypertensive urgency (principal); I16.1 Hypertensive emergency; E87.6 Hypokalemia; E66.9 Obesity, unspecified; Z68.34 Body mass index [BMI] 34.0-34.9, adult; R00.1 Bradycardia, unspecified; E87.3 Alkalosis
CPT/HCPCS: 36415; 70450-TC; 76775-TC; 80048; 80053; 80061; 82088; 82550; 82553; 83721; 83735; 84100; 84244; 84484; 85025; 85027; 86850; 86900; 86901; 93005; 93010; 93306-TC; 99282-25; J1644

== ENCOUNTER 2019-11-22 18:47 | Emergency (ER) | payer OTHER ==
[2019-11-22] MEDS ORDERED: ACETAMINOPHEN 500 MG TABLET (FP) PO ONE (19:28)
--- NOTE | 2019-11-22 19:29 | PDOC ---
Rapid Medical Evaluation Time Seen by Provider: 11/22/19 19:24 Medical Evaluation: Allergies Allergy/AdvReac Type Severity Reaction Status Date / Time No Known Drug Allergies Allergy Verified 03/29/18 00:43 11/22/19 19:26 HPI: COVID-19 CDC guideline data points: The patient is a [f_Reg Age Current/M presents with suspected COVID-19 with associated symptoms of fever, dry coughfor one day, complicated by this/these comorbidities: HTN. ROS: NEGATIVE: difficulty breathing, shortness of breath, chest pain, lightheadedness, dizziness, nausea, vomiting and diarrhea. Other 12 point ROS reviewed and negative. Exam: General: NAD, Well-Appearing, Awake, Alert Oriented x3. BP elevated 175/115 - took Valsartan today. Temp 103. ENT: No rhinorrhea or nasal congestion. Neck: FROM, no midline tenderness. Lungs: Clear to auscultation bilaterally without wheezes, rhonchi or rales. Normal excursion. Patient is able to speak in full sentences. Heart: HR: Regular rhythm, S1-S2 present, no murmurs rubs or gallops. Abdomen: Non-distended. MSK/Extremities: No decrease ROM, No obvious deformities. No obvious cyanosis noted. Neuro: Normal Gait, Cranial Nerves II through XII Grossly Intact. Skin: No obvious rashes, bruising. Color Normal Appearing. Assessment/Plan: Patient has a history of this/these comorbidities: HTN denies recent travel and known COVID exposure. Patient does not meet testing criteria at this time. ASSESSMENT: Denies recent travel and known Covid exposure. Treatment: Tylenol for fever Re-check BP 11/22/19 19:29 Discharge Disposition - Diagnosis Fever - Discharge Dispostion Last Admission D/C Date: 04/01/18 - Referrals - Patient Instructions - Post Discharge Activity
[2019-11-22 19:31] VITALS: BP 175/117; PULSE 108; TEMP 103
[2019-11-22] MEDS ORDERED: VALSARTAN 160 MG TABLET (UD) PO ONE (20:03)
[2019-11-22] MEDS ORDERED: VALSARTAN 80 MG TABLET (UD) ONE (20:17)
--- NOTE | 2019-11-22 20:50 | PDOC ---
*Physical Exam - Vital Signs Last Vital Signs Temp Pulse Resp BP Pulse Ox 103 F H 108 H 20 175/117 H 95 11/22/19 19:30 11/22/19 19:30 11/22/19 19:30 11/22/19 19:30 11/22/19 19:30 ED Treatment Course - Medications Given in the ED: ED Medications Discontinued Medications Generic Name Dose Route Start Last Admin Trade Name Seda PRN Reason Stop Dose Admin Acetaminophen 975 mg 11/22/19 19:28 11/22/19 19:31 Tylenol - PO 11/22/19 19:29 975 mg ONCE ONE Administration Valsartan 160 mg 11/22/19 20:03 11/22/19 20:23 Diovan - PO 11/22/19 20:04 160 mg ONCE ONE Administration Medical Decision Making - Medical Decision Making 11/22/19 20:47 Repeat BP- 172/110. T-100.0 Valsartan 160mg given. BP after medication- 169/104 Discharge home to social distancing and PMD follow up for BP management. Discharge - Discharge Information Problems reviewed: Yes Clinical Impression/Diagnosis: Fever Qualifiers: Fever type: unspecified Qualified Code(s): R50.9 - Fever, unspecified High blood pressure Qualifiers: Hypertension type: unspecified Qualified Code(s): I10 - Essential (primary) hypertension Condition: Fair Disposition: HOME - Admission No - Follow up/Referral - Patient Discharge Instructions Patient Printed Discharge Instructions: [facility]-Coronavirus Instructions, R- [facility] COVID-19 Isolation Protocol Additional Instructions: You were seen for your cough and possible Coronavirus (COVID-19) Please call the Department of Health testing center to make an appointment at or you can call [facility] at from 8:30 AM to 6 PM; or you can visit the [facility] website: [email or web address] for more information about testing at the [facility]. Take Tylenol 650 mg every 6 hours as needed for fever or pain. You may take Robitussin or other [id number] cough syrup. Follow the dosing instructions on the bottle. Warm tea, honey, and salt water gargles may help your symptoms. Please take precautions and self quarantine for 2 weeks and follow-up with your primary care doctor and the Department of Health. Follow up with your doctor for Blood Pressure management. Return to the nearest emergency department for shortness of breath, difficulty breathing, chest pain, or if you have any changes in your symptoms. - Post Discharge Activity Work/Back to School Note: Back to Work
== END 2019-11-22 20:59 | disposition home or self-care (01) ==
LOC: JER 18:47
DX: R50.9 Fever, unspecified (principal)
CPT/HCPCS: 99283-25

== ENCOUNTER 2020-05-04 21:15 | Inpatient (IN) | payer OTHER ==
[2020-05-04] MEDS ORDERED: morphine CARPU-JECT 4 MG/1 ML DISP.SYRIN IVPUSH ONE (21:22)
[2020-05-04] MEDS ORDERED: ONDANSETRON 4 MG/2 ML VIAL IVPUSH ONE (21:22)
[2020-05-04] MEDS ORDERED: SODIUM CHLORIDE 1,000 ML IV STA (21:22)
--- NOTE | 2020-05-04 21:22 | PDOC ---
Rapid Medical Evaluation Time Seen by Provider: 05/04/20 21:20 Medical Evaluation: Allergies Allergy/AdvReac Type Severity Reaction Status Date / Time No Known Drug Allergies Allergy Verified 03/29/18 00:43 05/04/20 21:20 I have performed a brief in-person evaluation of this patient. CC: RLQ pain x1 day. Subjective fevers PE: RLQ tenderness with guarding. Diaphoretic Orders: abd w/u Patient will proceed to ED for further evaluation. Discharge Disposition - Diagnosis RLQ abdominal pain - Referrals - Patient Instructions - Post Discharge Activity
--- NOTE | 2020-05-04 21:28 | PDOC ---
History of Present Illness - General Chief Complaint: Pain, Acute Stated Complaint: R UPPER ABDOMINAL PAIN Time Seen by Provider: 05/04/20 21:20 History Source: Patient - History of Present Illness Initial Comments: 05/04/20 22:17 44-year-old male complaining of right lower quadrant pain since yesterday today with nausea and fever and episodes of vomiting. Denies constipation, testicular pain, cough, chest pain, flank pain, upper abdominal pain PMHX: hypertension Past History - Medical History Allergies/Adverse Reactions: Allergies Allergy/AdvReac Type Severity Reaction Status Date / Time No Known Drug Allergies Allergy Verified 03/29/18 00:43 Home Medications: Ambulatory Orders Aspirin [ASA -] 81 mg PO DAILY tab.chew 04/01/18 Atorvastatin Ca [Lipitor] 40 mg PO HS #30 tablet 04/01/18 Blood Pressure Kit-Extra Large [Blood Pressure Monitor] 1 each MC BID #1 kit 04/01/18 Hydrochlorothiazide [Hctz -] 25 mg PO DAILY #30 tablet 04/01/18 Losartan Potassium [Cozaar -] 100 mg PO DAILY #30 tablet 04/01/18 Nifedipine ER [Procardia XL -] 60 mg PO DAILY #30 tab.er.24 04/01/18 COPD: No HTN: Yes - Psycho-Social/Smoking History Smoking History: Never smoked Have you smoked in the past 12 months: No - Substance Abuse Hx (Audit-C & DAST Scrn) How often the patient has a drink containing alcohol: Monthly or less Score: In Men: 4 or > Positive; In Women: 3 or > Positive: 1 Screen Result (Pos requires Nsg. Audit-10AR): Negative In the last yr the pt used illegal drug/Rx for NonMed reason: No Score: Yes response is considered Positive: 0 Screen Result (Positive result requires Nsg. DAST-10): Negative Review of Systems - Review of Systems Able to Perform ROS?: Yes Is the patient limited Urdu proficient: No Constitutional: No: Symptoms Reported, See HPI, Chills, Diaphoresis, Fever, Loss of Appetite, Malaise, Night Sweats, Weakness, Weight Stable, Unintentional Wgt. Loss, Unexplained wgt Loss, Other ABD/GI: Yes: Nausea, Vomiting, Abdominal cramping. No: Symptoms Reported, See HPI, Abdominal Distended, Abd. Pain w/ defecation, Blood Streaked Bowels, Con stipated, Diarrhea, Difficulty Swallowing, Poor Appetite, Poor Fluid Intake, Rectal Bleeding, Indigestion, Tarry Stools, Other : No: Flank Pain, Testicular Mass, Testicular Swelling, Testicular Pain *Physical Exam - Vital Signs Last Vital Signs Temp Pulse Resp BP Pulse Ox 97.8 F 112 H 19 158/95 97 05/04/20 21:21 05/04/20 21:21 05/04/20 21:21 05/04/20 21:21 05/04/20 21:21 - Physical Exam General Appearance: Yes: Appropriately Dressed Gastrointestinal/Abdominal: positive: Normal Bowel Sounds, Tender, Guarding (RLQ), Rebound, Other (+ mcburneys, + rosvigs) Musculoskeletal: positive: Normal Inspection. negative: CVA Tenderness Extremity: positive: Normal Capillary Refill, Normal Inspection Integumentary: positive: Normal Color, Dry, Warm Neurologic: positive: Fully Oriented, Alert, Normal Mood/Affect ED Treatment Course - LABORATORY CBC & Chemistry Diagram: 05/04/20 21:45 05/04/20 21:45 Medical Decision Making - Medical Decision Making 05/05/20 01:47 A: acute appendicitis P: labs CTAP:: Acute retrocecal appendicitis without abscess or free air. 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 05/05/20 03:[address] Fritz recommend NPO,, IV antibiotics OR later today 05/05/20 04:11 Patient admitted under hospitalist service Discharge - Discharge Information Problems reviewed: Yes Clinical Impression/Diagnosis: RLQ abdominal pain Appendicitis Qualifiers: Appendicitis type: acute appendicitis Acute appendicitis type: with localized peritonitis Appendicitis gangrene presence: unspecified whether gangrene present Appendicitis perforation presence: without perforation Appendicitis abscess presence: unspecified whether abscess present Qualified Code(s): K35.30 - Acute appendicitis with localized peritonitis, without perforation or gangrene - Admission Yes - Follow up/Referral - Patient Discharge Instructions - Post Discharge Activity
[2020-05-04 21:51] VITALS: BMI 33.9
[2020-05-04 21:56] LABS: BASO % 0.9 % (0-2.0); EOS % 0.2 % (0-4.5); HEMOGLOBIN 15.4 GM/dL (11.7-16.9); LYMPH % 15.2 % (8-40); MCH 27.9 pg (25.7-33.7); MCHC 33.5 g/dl (32.0-35.9); MEAN CELL VOLUME 83.2 fl (80-96); MEAN PLT VOLUME 10.6 fl (7.5-11.1); MONO % 7.4 % (3.8-10.2); NEUT % 76.3 % (42.8-82.8); PLATELET COUNT 166 K/MM3 (134-434); RBC 5.53 M/mm3 (4.00-5.60); RDW 14.1 % (11.9-15.9); WHITE BLOOD COUNT 12.3 K/mm3 (4.0-10.0)
[2020-05-04] MEDS ORDERED: morphine SULFATE 4 MG/ML VIAL ONE (22:05)
[2020-05-04 22:22] LABS: BILIRUBIN,TOTAL 0.9 mg/dL (0.2-1); BLOOD UREA NITROGEN 16.6 mg/dL (7-18); CALCIUM 9.6 mg/dL (8.5-10.1); CREATININE 1.5 mg/dL (0.55-1.3); POTASSIUM 3.6 mmol/L (3.5-5.1); TOT PROT 8.6 g/dl (6.4-8.2)
[2020-05-04 22:53] LABS: INR 1.08 (0.83-1.09); PROTHROMBIN TIME (PATIENT) 12.7 SEC (9.7-13.0)
[2020-05-04 22:56] LABS: ACTIVATED PTT 32.9 SECONDS (25.2-36.5)
[2020-05-04 22:57] LABS: EPI CELLS 5 /uL (0-25.1); HYALINE CASTS 0 /uL (0-3.1); URINE APPEARANCE CLOUDY; URINE BACTERIA 1 /uL (0-1359); URINE BILIRUBIN NEGATIVE (NEGATIVE); URINE COLOR YELLOW; URINE GLUCOSE (UA) NEGATIVE (NEGATIVE); URINE KETONE NEGATIVE (NEGATIVE); URINE LEUK ESTERASE NEGATIVE (NEGATIVE); URINE NITRITE NEGATIVE (NEGATIVE); URINE PROTEIN TRACE (NEGATIVE); URINE RBC 11 /uL (0-23.9); URINE UROBILINOGEN 0.2 mg/dL (0.2-1.0); URINE WBC 8 /uL (0-25.8)
[2020-05-05] MEDS ORDERED: SODIUM CHLORIDE 1,000 ML IV STA (00:10)
[2020-05-05] MEDS ORDERED: PIPERACILLIN/TAZOB 3.375 GM 3.375 GM in DEXTROSE 5%-WATER - 50 ML IVPB ONE (01:47)
[2020-05-05] MEDS ORDERED: LACTATED RINGERS SOLUTION 1,000 ML/1,000 ML INFUS.BAG IV SCH (02:15)
--- NOTE | 2020-05-05 02:26 | PN ---
Teaching Attending Note Name of Resident: Sally Stafford ATTENDING PHYSICIAN STATEMENT I saw and evaluated the patient. I reviewed the resident's note and discussed the case with the resident. I agree with the resident's findings and plan as documented. SUBJECTIVE: 44yoM with h/o hypertension who presents with RLQ abdominal pain. Initially began as generalized abdominal pain on 05/03, has since migrated to the right lower quadrant with nausea but no vomiting or diarrhea. Endorses chills and subjective fever. On arrival to the ED, patient is afebrile but tachycardic, labs notable for WBC 12.3, creatinine 1.5. CT abd/pelvis showed acute retrocecal appendicitis without abscess or free air. ED discussed case [facility], Dr. Fritz, with plan for OR tomorrow. Patient received 2L NS, morphine, and Zosyn. Patient has no history of CAD, CHF, or COPD/asthma. Believes he was told he may have CALVIN in the past, does not use CPAP at night. Good exercise tolerance, able to climb a flight of stairs without difficulty. OBJECTIVE: Vital Signs (72 hours) 05/04/20 05/05/20 21:21 00:53 Temperature 97.8 F 99.1 F Pulse Rate 112 H Pulse Rate [ 90 Left Radial] Respiratory 19 18 Rate Blood Pressure 158/95 Blood Pressure 155/99 [Left Arm] O2 Sat by Pulse 97 99 Oximetry (%) EXAM Gen: awake, alert, NAD HEENT: NC/AT CV: RRR, no MRG appreciated Resp: CTAB, unlabored breathing Abd: Soft, nondistended. Tender to palpation RLQ with voluntary guarding, no rebound Ext: no edema Neuro: CN II-XII grossly intact Psych: AOx3, appropriate mood/affect Laboratory Results - last 24 hr 05/04/20 05/04/20 05/04/20 21:45 21:45 21:45 WBC 12.3 H RBC 5.53 Hgb 15.4 Hct 46.0 MCV 83.2 MCH 27.9 MCHC 33.5 RDW 14.1 Plt Count 166 MPV 10.6 Absolute Neuts (auto) 9.3 H Neutrophils % 76.3 D Lymphocytes % 15.2 D Monocytes % 7.4 Eosinophils % 0.2 D Basophils % 0.9 Nucleated RBC % 0 PT with INR INR PTT (Actin FS) Sodium 137 Potassium 3.6 Chloride 98 Carbon Dioxide 32 Anion Gap 7 L BUN 16.6 Creatinine 1.5 H Est GFR (CKD-EPI)AfAm 65.61 Est GFR (CKD-EPI)NonAf 56.61 Random Glucose 131 H Calcium 9.6 Total Bilirubin 0.9 AST 21 ALT 28 Alkaline Phosphatase 79 Total Protein 8.6 H Albumin 4.0 Lipase 111 Urine Color Urine Appearance Urine pH Ur Specific [place] Urine Protein Urine Glucose (UA) Urine Ketones Urine Blood Urine Nitrite Urine Bilirubin Urine Urobilinogen Ur Leukocyte Esterase Urine WBC (Auto) Urine RBC (Auto) Urine Casts (Auto) U Epithel Cells (Auto) Urine Bacteria (Auto) Blood Type O POSITIVE Antibody Screen Negative 05/04/20 05/04/20 22:35 22:40 WBC RBC Hgb Hct MCV MCH MCHC RDW Plt Count MPV Absolute Neuts (auto) Neutrophils % Lymphocytes % Monocytes % Eosinophils % Basophils % Nucleated RBC % PT with INR 12.70 INR 1.08 PTT (Actin FS) 32.9 Sodium Potassium Chloride Carbon Dioxide Anion Gap BUN Creatinine Est GFR (CKD-EPI)AfAm Est GFR (CKD-EPI)NonAf Random Glucose Calcium Total Bilirubin AST ALT Alkaline Phosphatase Total Protein Albumin Lipase Urine Color Yellow Urine Appearance Cloudy Urine pH 5.0 Ur Specific [place] 1.017 Urine Protein Trace Urine Glucose (UA) Negative Urine Ketones Negative Urine Blood 1+ H Urine Nitrite Negative Urine Bilirubin Negative Urine Urobilinogen 0.2 Ur Leukocyte Esterase Negative Urine WBC (Auto) 8 Urine RBC (Auto) 11 Urine Casts (Auto) 0 U Epithel Cells (Auto) 5 Urine Bacteria (Auto) 1 Blood Type Antibody Screen Imaging, EKG reviewed in chart ASSESSMENT AND PLAN: 44yoM with h/o hypertension who presents with RLQ abdominal pain found to have acute appendicitis. Acute appendicitis s/p Zosyn in ED Able to perform >4 METS, RCRI = 0, low risk for low/moderate risk surgery Given possible h/o untreated CALVIN, monitor O2 sat closely post operatively Medically cleared for surgery - NPO - continue IVF - morphine PRN for pain - Empiric abx with ceftriaxone, metronidazole - surgery consult appreciated Renal dysfunction Creatinine 1.5 on admission, baseline unclear. Previously 1.1-1.4 in 2018 Has seen nephrology in the past and was told nothing to do - trend - avoid nephrotoxic medications HTN: holding AUBREY-I. Pain control, consider IV hydralazine if needed for BP control DVT ppx: SCD pending OR
[2020-05-05] MEDS ORDERED: PIPERACILLIN/TAZOB 3.375 GM 3.375 GM/50 ML BAG IVPB ONE ×2 (02:48→09:19)
--- NOTE | 2020-05-05 03:25 | HP ---
CHIEF COMPLAINT: it has been hurting since Monday evening PCP: Dr. Pilo Barney - nephrology HISTORY OF PRESENT ILLNESS: 44yo M with PMHx of HTN who presents with one day of abdominal pain. Patient said the pain was originally in the entire lower abdomen and pelvis but today he is feeling it only in the RLQ of the abdomen. He has never experienced this type of pain before and has never had any intraabdominal infections/issues. Was hospitalized last year due to hypertensive urgency but has never received IV abx. Patient endorsed a fever and emesis x2 on Monday. Normally has a BM daily, last one was Monday morning but patient continues to pass flatulence. Denied headaches, diarrhea, feeling constipated, dysuria, urinary frequency. ER course was notable for: (1) BP 150s/90s, P 112 (2) WBC 12.3 with neutrophilic predominance (3) CT abdomen/pelvis: acute retrocecal appendicitis without abscess or free air Recent Travel: to [place] PAST MEDICAL HISTORY: HTN PAST SURGICAL HISTORY: none Family History: Father: HTN mother: asthma siblings and 3 children are healthy Social History: Smoking: denied Alcohol: socially Drugs: denied Work: taxi/uber drivers Home: lives at home with Allergies No Known Drug Allergies Allergy (Verified 03/29/18 00:43) HOME MEDICATIONS: Azilsartan 150 daily REVIEW OF SYSTEMS as per HPI PHYSICAL EXAMINATION Vital Signs - 24 hr 05/04/20 05/05/20 21:21 00:53 Temperature 97.8 F 99.1 F Pulse Rate 112 H Pulse Rate [ 90 Left Radial] Respiratory 19 18 Rate Blood Pressure 158/95 Blood Pressure 155/99 [Left Arm] O2 Sat by Pulse 97 99 Oximetry (%) GENERAL: M, large body habitus, sleeping comfortably in ED bed, easily arousable, AAOx3, in no acute distress HEAD: Normal with no signs of trauma EYES: extraocular movements intact EARS, NOSE, THROAT: Moist mucous membranes NECK: No lymphadenopathy noted LUNGS: CTAB HEART: Regular rate and rhythm, normal S1 and S2 without murmur ABDOMEN: Soft, protuberant, hypoactive bowel sounds, no guarding or rebound, tenderness to palpation in RLQ, negative Provsing's sign, positive Psoas and Obturator sign EXTREMITIES: 2+ radial and dorsalis pedis pulses, warm to touch, no peripheral edema noted NEUROLOGICAL: Cranial nerves II-XII grossly intact. Normal speech with symmetrical facial movements PSYCHIATRIC: Cooperative and interactive. Responds appropriately. Good eye contact. Appropriate mood and affect. SKIN: no rashes or lesions noted Abnormal Lab Results 05/04/20 05/04/20 05/04/20 21:45 21:45 22:40 WBC 12.3 H Absolute Neuts (auto) 9.3 H Anion Gap 7 L Creatinine 1.5 H Random Glucose 131 H Total Protein 8.6 H Urine Blood 1+ H ASSESSMENT/PLAN: 44yo M with PMHx of HTN who presents with one day of abdominal pain. ED workup showed BP 150s/90s, P 112, WBC 12.3 with neutrophilic predominance, and CT abdomen/pelvis: acute retrocecal appendicitis without abscess or free air. Patient admitted for further management of acute appendicitis. #Acute appendicitis with leukocytosis and tachycardia - surgery consulted - recommended NPO, abx, OR later today - zosyn in ED - continue with ceftriaxone and metronidazole for narrowed coverage - continue morphine PRN for pain - continue ondansetron PRN for nausea - gentle hydration with maintenance IVFs #HTN - hold home PO meds - attempt pain control before administering antihypertensives - if clinically indicated, can give IV hydralazine or IV labetalol #?LEE ANN on ?CKD (?dehydration) per patient, he was seen by nephrology who said that his kidneys are "ok" may warrant outpatient followup - avoid nephrotoxic drugs - continue monitoring Cr #FEN - 75cc/h NS - replete lytes PRN - NPO #PPX - DVT: SCDs #Dispo: [facility]Sur Family Medical History Family History: As Documented Visit type - Emergency Visit Emergency Visit: Yes ED Registration Date: 05/05/20 Care time: The patient presented to the Emergency Department on the above date and was hospitalized for further evaluation of their emergent condition. - New Patient This patient is new to me today: Yes Date on this admission: 05/05/20 - Critical Care Critical Care patient: No ATTENDING PHYSICIAN STATEMENT I saw and evaluated the patient. I reviewed the resident's note and discussed the case with the resident. I agree with the resident's findings and plan as documented. SUBJECTIVE: OBJECTIVE: ASSESSMENT AND PLAN:
[2020-05-05] MEDS ORDERED: morphine SULFATE 4 MG/ML VIAL IVPUSH PRN (04:47)
[2020-05-05] MEDS ORDERED: ACETAMINOPHEN 1000 MG/100 ML VIAL (NON FORMULARY) IVPB PRN ×2 (04:49→15:26)
[2020-05-05] MEDS ORDERED: morphine SULFATE 4 MG/ML VIAL ONE (06:44)
[2020-05-05 07:24] LABS: BASO % 0.2 % (0-2.0); EOS % 0.2 % (0-4.5); HEMATOCRIT 40.4 % (35.4-49); HEMOGLOBIN 13.5 GM/dL (11.7-16.9); LYMPH % 18.5 % (8-40); MCH 27.8 pg (25.7-33.7); MCHC 33.4 g/dl (32.0-35.9); MEAN CELL VOLUME 83.3 fl (80-96); MONO % 8.5 % (3.8-10.2); NEUT % 72.6 % (42.8-82.8); PLATELET COUNT 157 K/MM3 (134-434); RBC 4.85 M/mm3 (4.00-5.60); WHITE BLOOD COUNT 11.4 K/mm3 (4.0-10.0)
[2020-05-05 07:48] LABS: ALBUMIN 3.4 g/dl (3.4-5.0); BILIRUBIN,TOTAL 0.7 mg/dL (0.2-1); BLOOD UREA NITROGEN 12.7 mg/dL (7-18); CALCIUM 8.1 mg/dL (8.5-10.1); CREATININE 1.4 mg/dL (0.55-1.3); MAGNESIUM 2.2 mg/dL (1.8-2.4); POTASSIUM 3.7 mmol/L (3.5-5.1); TOT PROT 7.2 g/dl (6.4-8.2)
[2020-05-05] MEDS ORDERED: POTASSIUM PHOSPHATE 15 MM in SODIUM CHLORIDE 250 ML IVPB ONE (08:19)
--- NOTE | 2020-05-05 09:19 | CONSULT ---
<Grisel Marquez - Last Filed: 05/05/20 09:46> - Consultation REQUESTING PROVIDER: CONSULT REQUEST: We have been asked to surgically evaluate this patient for (specify). Hospitalist:Karlos Cole MD HISTORY OF PRESENT ILLNESS: The patient is a 44 o male who presented to the ER for abdominal pain which began Monday. He states that the pain started on Monday in the ryan-umbilical region and then progressed to the lower abd. Nausea and emesis improved. Last diet was yesterday. The patient was having fevers and chills at home. No dysuria. His pain is a 4/10 with pain medications. PMHx: HTN PSHx: denies Home Medications Medication Instructions Recorded Aspirin [ASA -] 81 mg PO DAILY tab.chew 04/01/18 Atorvastatin Ca [Lipitor] 40 mg PO HS #30 tablet 04/01/18 Hydrochlorothiazide [Hctz -] 25 mg PO DAILY #30 tablet 04/01/18 Losartan Potassium [Cozaar -] 100 mg PO DAILY #30 tablet 04/01/18 Allergies Allergy/AdvReac Type Severity Reaction Status Date / Time No Known Drug Allergies Allergy Verified 03/29/18 00:43 REVIEW OF SYSTEMS: CONSTITUTIONAL: Present: fever, chills CARDIOVASCULAR: Absent: chest pain,palpitations, irregular heart rate RESPIRATORY: Absent: cough, shortness of breath GASTROINTESTINAL: Absent: no h/o GI bleeding/ulcers/gastritis GENITOURINARY: Absent: dysuria, hematuria MUSCULOSKELETAL: Absent: joint swelling, back pain, neck pain SKIN: Absent: rash, itching, pallor HEMATOLOGIC/IMMUNOLOGIC: Absent: easy bleeding, easy bruising no h/o DVT NEUROLOGIC: Absent: headache, paresthesias PHYSICAL EXAM: GENERAL: Awake, alert, and fully oriented, in no acute distress. LUNGS: Clear to auscultation bilat anteriorly. No wheezes, and no crackles. HEART: Regular rate and rhythm. ABDOMEN: Soft, RLQ tenderness to palpation with guarding. No rebound. LOWER EXTREMITIES: No calf tenderness. No peripheral edema. NEUROLOGICAL: Normal speech, gait not observed. 5/5 dorsi/plantar flexion PSYCH: Cooperative. Good eye contact. Appropriate mood and affect. Vital Signs Temperature 99.6 F 05/05/20 07:15 Pulse Rate 87 05/05/20 07:15 Respiratory Rate 18 05/05/20 07:15 Blood Pressure 152/92 05/05/20 07:15 O2 Sat by Pulse Oximetry (%) 94 L 05/05/20 07:15 Lab Results WBC 11.4 K/mm3 (4.0-10.0) H 05/05/20 05:47 RBC 4.85 M/mm3 (4.00-5.60) 05/05/20 05:47 Hgb 13.5 GM/dL (11.7-16.9) 05/05/20 05:47 Hct 40.4 % (35.4-49) 05/05/20 05:47 MCV 83.3 fl (80-96) 05/05/20 05:47 MCHC 33.4 g/dl (32.0-35.9) 05/05/20 05:47 RDW 14.0 % (11.9-15.9) 05/05/20 05:47 Plt Count 157 K/MM3 (134-434) 05/05/20 05:47 INR 1.08 (0.83-1.09) 05/04/20 22:35 Sodium 139 mmol/L (136-145) 05/05/20 05:47 Potassium 3.7 mmol/L (3.5-5.1) 05/05/20 05:47 Chloride 104 mmol/L (98-107) 05/05/20 05:47 Carbon Dioxide 31 mmol/L (21-32) 05/05/20 05:47 Anion Gap 4 MMOL/L (8-16) L 05/05/20 05:47 BUN 12.7 mg/dL (7-18) 05/05/20 05:47 Creatinine 1.4 mg/dL (0.55-1.3) H 05/05/20 05:47 Random Glucose 105 mg/dL (74-106) 05/05/20 05:47 Calcium 8.1 mg/dL (8.5-10.1) L 05/05/20 05:47 Blood Type O POSITIVE 05/04/20 21:45 Antibody Screen Negative 05/04/20 21:45 CT scan: finding c/w appendictis/retrocecal without abscess formation Problem List - Problems (1) Appendicitis Assessment/Plan: 44 yo male with acute appendicitis. Recommend to continue npo/IV hydration. IV abx, last dose of zosyn at 3am..continue IV abx Pain management as needed DVT ppx with SCDs b/l D/w Dr. Fritz, pt scheduled for the OR today. Problems reviewed: Yes Code(s): K37 - UNSPECIFIED APPENDICITIS Qualifiers: Appendicitis type: acute appendicitis Acute appendicitis type: with localized peritonitis Appendicitis gangrene presence: unspecified whether gangrene present Appendicitis perforation presence: without perforation Appendicitis abscess presence: unspecified whether abscess present Qualified Code(s): K35.30 - Acute appendicitis with localized peritonitis, without perforation or gangrene <Sukh Fritz - Last Filed: 05/19/20 08:28> - Consultation Attending Surgeon: I personally saw and examined the patient. My examination reveals a patient with acute appendicitis. I discussed the case with the surgical PA and agree with their findings and plan of care with any exceptions as noted. ~ Sukh Fritz MD, FACS
[2020-05-05] MEDS ORDERED: PIPERACILLIN/TAZOB 3.375 GM 3.375 GM in DEXTROSE 5%-WATER - 50 ML IVPB SCH ×2 (10:00→18:00)
--- NOTE | 2020-05-05 10:53 | EKG ---
Test Reason : Blood Pressure : / mmHG Vent. Rate : 103 BPM Atrial Rate : 103 BPM P-R Int : 180 ms QRS Dur : 088 ms QT Int : 328 ms P-R-T Axes : 045 004 057 degrees QTc Int : 429 ms SINUS TACHYCARDIA POSSIBLE LEFT ATRIAL ENLARGEMENT INFERIOR INFARCT , AGE UNDETERMINED ABNORMAL ECG WHEN COMPARED WITH ECG OF 30-MAR-2018 09:05, INFERIOR INFARCT IS NOW PRESENT ST NO LONGER ELEVATED IN ANTERIOR LEADS T WAVE INVERSION NO LONGER EVIDENT IN ANTEROLATERAL LEADS Confirmed by Braulio Mullen MD ([id number]) on 05/05/2020 10:52:45 AM Referred By: Confirmed By:Braulio Mullen MD
[2020-05-05] MEDS ORDERED: ROCURONIUM BROMIDE 50 MG/5 ML SYRINGE ONE (12:15)
[2020-05-05] MEDS ORDERED: PROPOFOL 20 ML ONE ×2 (12:15→14:20)
[2020-05-05] MEDS ORDERED: fentaNYL CITRATE 250 MCG/5 ML VIAL ONE (12:15)
[2020-05-05] MEDS ORDERED: MIDAZOLAM HCL 2 MG/2 ML SINGLE DOSE VIAL ONE (12:15)
[2020-05-05] MEDS ORDERED: LIDOCAINE HCL/PF 2% SDV 5ML VIAL ONE (12:15)
[2020-05-05] MEDS ORDERED: DEXAMETHASONE SOD PHOSPHATE 4 MG/1 ML VIAL ONE (12:15)
[2020-05-05] MEDS ORDERED: BUPIVACAINE HCL/PF 0.5% (5 MG/ML) 30 ML VIAL IJ ONE (12:25)
--- NOTE | 2020-05-05 13:18 | PN ---
Physical Exam: SUBJECTIVE: Patient seen and examined. Complaining of RLQ abdominal pain, decrease from admission with pain medications. OBJECTIVE: Vital Signs Period Temp Pulse Resp BP Sys/Celestin Pulse Ox Last 24 Hr 97.8 F-99.6 F 82-112 17-19 140-158/90-99 94-99 GENERAL: The patient is awake, alert, and fully oriented, in no acute distress. HEAD: Normal with no signs of trauma. EYES: PERRL, extraocular movements intact, sclera anicteric, conjunctiva clear. No ptosis. ENT: Ears normal, nares patent, oropharynx clear without exudates, moist mucous membranes. NECK: Trachea midline, full range of motion, supple. LUNGS: Breath sounds equal, clear to auscultation bilaterally, no wheezes, no crackles, no accessory muscle use. HEART: Regular rate and rhythm, S1, S2 without murmur, rub or gallop. ABDOMEN: Soft, RLQ tenderness with guarding, nondistended, normoactive bowel sounds, no rebound, no hepatosplenomegaly, no masses. EXTREMITIES: 2+ pulses, warm, well-perfused, no edema. NEUROLOGICAL: Cranial nerves II through XII grossly intact. Normal speech, gait not observed. PSYCH: Normal mood, normal affect. SKIN: Warm, dry, normal turgor, no rashes or lesions noted Laboratory Results - last 24 hr 05/04/20 05/04/20 05/04/20 21:45 21:45 21:45 WBC 12.3 H RBC 5.53 Hgb 15.4 Hct 46.0 MCV 83.2 MCH 27.9 MCHC 33.5 RDW 14.1 Plt Count 166 MPV 10.6 Absolute Neuts (auto) 9.3 H Neutrophils % 76.3 D Lymphocytes % 15.2 D Monocytes % 7.4 Eosinophils % 0.2 D Basophils % 0.9 Nucleated RBC % 0 PT with INR INR PTT (Actin FS) Sodium 137 Potassium 3.6 Chloride 98 Carbon Dioxide 32 Anion Gap 7 L BUN 16.6 Creatinine 1.5 H Est GFR (CKD-EPI)AfAm 65.61 Est GFR (CKD-EPI)NonAf 56.61 Random Glucose 131 H Calcium 9.6 Phosphorus Magnesium Total Bilirubin 0.9 AST 21 ALT 28 Alkaline Phosphatase 79 Total Protein 8.6 H Albumin 4.0 Lipase 111 Urine Color Urine Appearance Urine pH Ur Specific [place] Urine Protein Urine Glucose (UA) Urine Ketones Urine Blood Urine Nitrite Urine Bilirubin Urine Urobilinogen Ur Leukocyte Esterase Urine WBC (Auto) Urine RBC (Auto) Urine Casts (Auto) U Epithel Cells (Auto) Urine Bacteria (Auto) Blood Type O POSITIVE Antibody Screen Negative 05/04/20 05/04/20 05/05/20 22:35 22:40 05:47 WBC 11.4 H RBC 4.85 Hgb 13.5 Hct 40.4 MCV 83.3 MCH 27.8 MCHC 33.4 RDW 14.0 Plt Count 157 MPV 11.0 Absolute Neuts (auto) 8.3 H Neutrophils % 72.6 Lymphocytes % 18.5 D Monocytes % 8.5 Eosinophils % 0.2 Basophils % 0.2 Nucleated RBC % 0 PT with INR 12.70 INR 1.08 PTT (Actin FS) 32.9 Sodium Potassium Chloride Carbon Dioxide Anion Gap BUN Creatinine Est GFR (CKD-EPI)AfAm Est GFR (CKD-EPI)NonAf Random Glucose Calcium Phosphorus Magnesium Total Bilirubin AST ALT Alkaline Phosphatase Total Protein Albumin Lipase Urine Color Yellow Urine Appearance Cloudy Urine pH 5.0 Ur Specific [place] 1.017 Urine Protein Trace Urine Glucose (UA) Negative Urine Ketones Negative Urine Blood 1+ H Urine Nitrite Negative Urine Bilirubin Negative Urine Urobilinogen 0.2 Ur Leukocyte Esterase Negative Urine WBC (Auto) 8 Urine RBC (Auto) 11 Urine Casts (Auto) 0 U Epithel Cells (Auto) 5 Urine Bacteria (Auto) 1 Blood Type Antibody Screen 05/05/20 05:47 WBC RBC Hgb Hct MCV MCH MCHC RDW Plt Count MPV Absolute Neuts (auto) Neutrophils % Lymphocytes % Monocytes % Eosinophils % Basophils % Nucleated RBC % PT with INR INR PTT (Actin FS) Sodium 139 Potassium 3.7 Chloride 104 Carbon Dioxide 31 Anion Gap 4 L BUN 12.7 Creatinine 1.4 H Est GFR (CKD-EPI)AfAm 71.32 Est GFR (CKD-EPI)NonAf 61.53 Random Glucose 105 Calcium 8.1 L Phosphorus 2.0 L Magnesium 2.2 Total Bilirubin 0.7 AST 16 ALT 23 Alkaline Phosphatase 66 Total Protein 7.2 Albumin 3.4 Lipase Urine Color Urine Appearance Urine pH Ur Specific [place] Urine Protein Urine Glucose (UA) Urine Ketones Urine Blood Urine Nitrite Urine Bilirubin Urine Urobilinogen Ur Leukocyte Esterase Urine WBC (Auto) Urine RBC (Auto) Urine Casts (Auto) U Epithel Cells (Auto) Urine Bacteria (Auto) Blood Type Antibody Screen Active Medications Generic Name Dose Route Start Last Admin Trade Name Freq PRN Reason Stop Dose Admin Acetaminophen 1,000 mg 05/05/20 04:49 Ofirmev Injection - IVPB 05/06/20 04:49 Q6H PRN PAIN Lactated Ringer's 1,000 ml in 1,000 mls @ 125 mls/hr 05/05/20 02:15 05/05/20 03:00 Lactated Ringers Solution IV 125 mls/hr ASDIR POLY Administration Piperacillin Sod/Tazobactam 50 mls @ 100 mls/hr 05/05/20 10:00 Sod 3.375 gm/ Dextrose IVPB Q8H-IV POLY Protocol Piperacillin Sod/Tazobactam 50 mls @ 100 mls/hr 05/05/20 10:00 05/05/20 09:40 Sod 3.375 gm/ Dextrose IVPB 05/06/20 02:29 100 mls/hr Q8H-IV POLY Administration Protocol Morphine Sulfate 4 mg 05/05/20 04:47 Morphine Sulfate IVPUSH Q4H PRN PAIN LEVEL 7 - 10 ASSESSMENT/PLAN: 44yo M with PMHx of HTN who presents with RLQ abdominal pain. CT abdomen/pelvis: acute retrocecal appendicitis without abscess or free air. Patient admitted for appendicitis, to go to OR today. #Acute appendicitis -CT showing acute retrocecal appendicitis without abscess or free air -Zosyn -Morphine PRN for pain -OR today #Hx of HTN -Hold home BP meds (Losartan, HCTZ) -Monitor BP FEN: NPO Monitor electrolytes LR 125cc PPx: SCD Dispo: Admitted to [facility]. Acute appendictis without perforation or abscess on Zosyn, to OR today Visit type - Emergency Visit Emergency Visit: Yes ED Registration Date: 05/05/20 Care time: The patient presented to the Emergency Department on the above date and was hospitalized for further evaluation of their emergent condition. - New Patient This patient is new to me today: No - Critical Care Critical Care patient: No ATTENDING PHYSICIAN STATEMENT I saw and evaluated the patient. I reviewed the resident's note and discussed the case with the resident. I agree with the resident's findings and plan as documented. SUBJECTIVE: OBJECTIVE: ASSESSMENT AND PLAN:
[2020-05-05] MEDS ORDERED: NEOSTIGMINE METHYLSULFATE 0.5 MG/ML - 10 ML MDV ONE (13:24)
[2020-05-05] MEDS ORDERED: KETOROLAC TROMETHAMINE 30 MG/1 ML VIAL ONE (14:27)
[2020-05-05] MEDS ORDERED: GLYCOPYRROLATE 0.2 MG/1 ML VIAL ONE (14:28)
--- NOTE | 2020-05-05 14:45 | PN ---
Teaching Attending Note Name of Resident: Evan Stanley ATTENDING PHYSICIAN STATEMENT I saw and evaluated the patient. I reviewed the resident's note and discussed the case with the resident. I agree with the resident's findings and plan as documented. SUBJECTIVE: Ongoing RLQ abdominal pain. Nausea/vomiting resolved. OBJECTIVE: Tmax 99.1, Hemodynamically Stable. Last Vital Signs Temp Pulse Resp BP Pulse Ox 99.6 F 82 18 142/98 96 05/05/20 07:15 05/05/20 10:48 05/05/20 10:48 05/05/20 10:48 05/05/20 10:48 HEENT - Atraumatic, Normocephalic. Heart - S1, S2, RRR Lungs - clear to auscultation Abdomen - RLQ tenderness++. Extremities - no edema, no calf tenderness. Neuro - AAO x 3. Tone/Power normal. Laboratory Results - last 24 hr 05/04/20 05/04/20 05/04/20 21:45 21:45 21:45 WBC 12.3 H RBC 5.53 Hgb 15.4 Hct 46.0 MCV 83.2 MCH 27.9 MCHC 33.5 RDW 14.1 Plt Count 166 MPV 10.6 Absolute Neuts (auto) 9.3 H Neutrophils % 76.3 D Lymphocytes % 15.2 D Monocytes % 7.4 Eosinophils % 0.2 D Basophils % 0.9 Nucleated RBC % 0 PT with INR INR PTT (Actin FS) Sodium 137 Potassium 3.6 Chloride 98 Carbon Dioxide 32 Anion Gap 7 L BUN 16.6 Creatinine 1.5 H Est GFR (CKD-EPI)AfAm 65.61 Est GFR (CKD-EPI)NonAf 56.61 Random Glucose 131 H Calcium 9.6 Phosphorus Magnesium Total Bilirubin 0.9 AST 21 ALT 28 Alkaline Phosphatase 79 Total Protein 8.6 H Albumin 4.0 Lipase 111 Urine Color Urine Appearance Urine pH Ur Specific [place] Urine Protein Urine Glucose (UA) Urine Ketones Urine Blood Urine Nitrite Urine Bilirubin Urine Urobilinogen Ur Leukocyte Esterase Urine WBC (Auto) Urine RBC (Auto) Urine Casts (Auto) U Epithel Cells (Auto) Urine Bacteria (Auto) Blood Type O POSITIVE Antibody Screen Negative 05/04/20 05/04/20 05/05/20 22:35 22:40 05:47 WBC 11.4 H RBC 4.85 Hgb 13.5 Hct 40.4 MCV 83.3 MCH 27.8 MCHC 33.4 RDW 14.0 Plt Count 157 MPV 11.0 Absolute Neuts (auto) 8.3 H Neutrophils % 72.6 Lymphocytes % 18.5 D Monocytes % 8.5 Eosinophils % 0.2 Basophils % 0.2 Nucleated RBC % 0 PT with INR 12.70 INR 1.08 PTT (Actin FS) 32.9 Sodium Potassium Chloride Carbon Dioxide Anion Gap BUN Creatinine Est GFR (CKD-EPI)AfAm Est GFR (CKD-EPI)NonAf Random Glucose Calcium Phosphorus Magnesium Total Bilirubin AST ALT Alkaline Phosphatase Total Protein Albumin Lipase Urine Color Yellow Urine Appearance Cloudy Urine pH 5.0 Ur Specific [place] 1.017 Urine Protein Trace Urine Glucose (UA) Negative Urine Ketones Negative Urine Blood 1+ H Urine Nitrite Negative Urine Bilirubin Negative Urine Urobilinogen 0.2 Ur Leukocyte Esterase Negative Urine WBC (Auto) 8 Urine RBC (Auto) 11 Urine Casts (Auto) 0 U Epithel Cells (Auto) 5 Urine Bacteria (Auto) 1 Blood Type Antibody Screen 05/05/20 05:47 WBC RBC Hgb Hct MCV MCH MCHC RDW Plt Count MPV Absolute Neuts (auto) Neutrophils % Lymphocytes % Monocytes % Eosinophils % Basophils % Nucleated RBC % PT with INR INR PTT (Actin FS) Sodium 139 Potassium 3.7 Chloride 104 Carbon Dioxide 31 Anion Gap 4 L BUN 12.7 Creatinine 1.4 H Est GFR (CKD-EPI)AfAm 71.32 Est GFR (CKD-EPI)NonAf 61.53 Random Glucose 105 Calcium 8.1 L Phosphorus 2.0 L Magnesium 2.2 Total Bilirubin 0.7 AST 16 ALT 23 Alkaline Phosphatase 66 Total Protein 7.2 Albumin 3.4 Lipase Urine Color Urine Appearance Urine pH Ur Specific [place] Urine Protein Urine Glucose (UA) Urine Ketones Urine Blood Urine Nitrite Urine Bilirubin Urine Urobilinogen Ur Leukocyte Esterase Urine WBC (Auto) Urine RBC (Auto) Urine Casts (Auto) U Epithel Cells (Auto) Urine Bacteria (Auto) Blood Type Antibody Screen Current Medications Generic Name Dose Route Start Last Admin Trade Name Freq PRN Reason Stop Dose Admin Acetaminophen 1,000 mg 05/05/20 04:49 Ofirmev Injection - IVPB 05/06/20 04:49 Q6H PRN PAIN Lactated Ringer's 1,000 ml in 1,000 mls @ 125 mls/hr 05/05/20 02:15 05/05/20 03:00 Lactated Ringers Solution IV 125 mls/hr ASDIR POLY Administration Piperacillin Sod/Tazobactam 50 mls @ 100 mls/hr 05/05/20 10:00 Sod 3.375 gm/ Dextrose IVPB Q8H-IV POLY Protocol Piperacillin Sod/Tazobactam 50 mls @ 100 mls/hr 05/05/20 10:00 05/05/20 09:40 Sod 3.375 gm/ Dextrose IVPB 05/06/20 02:29 100 mls/hr Q8H-IV POLY Administration Protocol Morphine Sulfate 4 mg 05/05/20 04:47 Morphine Sulfate IVPUSH Q4H PRN PAIN LEVEL 7 - 10 ASSESSMENT AND PLAN: 44 year old male with history of HTN, CKD 3, presents with RLQ abdominal pain, found to have acute appendicitis. 1. Acute Appendicitis CT A/P - findings consistent with acute appendicitis. On Zosyn pre-operatively Scheduled for OR today for lap appendectomy Surgery consulted. NPO/IV hydration 2. CKD 3 - stable Will refer to Nephrology on discharge for follow up. 3. HTN - BP meds on hold pending OR Can resume Labetolol and ARB/HCTZ post-op once BP allows. Needs home medication confirmation. 4. Hypophosphatemia - repleted. DVT Px - Heparin SQ
[2020-05-05] MEDS: LACTATED RINGERS SOLUTION 1,000 ML/1,000 ML INFUS.BAG IV SCH (15:00)
--- NOTE | 2020-05-05 15:17 | SURG ---
Surgery Cytology Technologist Note Cytology Technologist: Sorin Mcknight PA-C (Suzy) Date of Service: 05/05/20 Diagnosis: appendicitis Procedure: Operation: Laparoscopic appendectomy I was present for the entirety of the operative procedure. For further detail, please refer to operative report. Visit type - Case Type Case Type: ED Admission - Emergency Emergency Visit: Yes ED Registration Date: 05/05/20 Care time: The patient presented to the Emergency Department on the above date and was hospitalized for further evaluation of their emergent condition. - New patient This patient is new to me today: Yes Date on this admission: 05/05/20 - Critical Care Critical Care patient: No
--- NOTE | 2020-05-05 15:17 | OP ---
Operative Note - Note: Operative Date: 05/05/20 Pre-Operative Diagnosis: Appendicitis Operation: Laparoscopic appendectomy Findings: gangrenous appendix Post-Operative Diagnosis: Other (acute gangrenous appendix) Surgeon: Sukh Fritz Marzipan Maker: Sorin Mcknight Anesthesiologist/SUPERVISOR CLOTH WINDING: Lilliam Mac Anesthesia: General, Local Specimens Removed: appendix Estimated Blood Loss (mls): 15 (ml) Drains, Volume Out (mls): 50 (ml yellow urine) Operative Report Dictated: Yes
[2020-05-05] MEDS ORDERED: oxyCODONE HCL 5 MG TABLET PO PRN ×2 (15:26)
--- NOTE | 2020-05-05 15:29 | CON.ID ---
Consult - Past Medical History Cardio/Vascular: Yes: HTN - Alcohol/Substance Use Hx Alcohol Use: No - Smoking History Smoking history: Never smoked Have you smoked in the past 12 months: No Home Medications - Allergies Allergies/Adverse Reactions: Allergies Allergy/AdvReac Type Severity Reaction Status Date / Time No Known Drug Allergies Allergy Verified 03/29/18 00:43 - Home Medications Home Medications: Ambulatory Orders Aspirin [ASA -] 81 mg PO DAILY tab.chew 04/01/18 Atorvastatin Ca [Lipitor] 40 mg PO HS #30 tablet 04/01/18 Hydrochlorothiazide [Hctz -] 25 mg PO DAILY #30 tablet 04/01/18 Losartan Potassium [Cozaar -] 100 mg PO DAILY #30 tablet 04/01/18 Irbesartan/Hydrochlorothiazide [Irbesartan-Hctz 300-12.5 mg Tb] 300 mg PO DAILY 05/05/20 Labetalol HCl [Normodyne -] 200 mg PO BID 05/05/20 Potassium Chloride [Klor-Con] 20 meq PO DAILY 05/05/20 Physical Exam Vital Signs: Vital Signs Temperature 99.3 F 05/05/20 15:00 Pulse Rate 91 H 05/05/20 15:15 Respiratory Rate 22 H 05/05/20 15:15 Blood Pressure 163/82 05/05/20 15:15 O2 Sat by Pulse Oximetry (%) 94 L 05/05/20 15:15 Labs: CBC, BMP 05/05/20 05:47 05/05/20 05:47
[2020-05-05] MEDS: PIPERACILLIN/TAZOB 3.375 GM 3.375 GM in DEXTROSE 5%-WATER - 50 ML IVPB SCH ×2 (18:27→18:37)
[2020-05-05] MEDS ORDERED: PIPERACILLIN/TAZOBACTAM 3.375 GM VIAL IVPB ONE (18:27)
[2020-05-05] MEDS ORDERED: HEPARIN NA (PORCINE) 5,000 UNITS/ML 1ML VIAL SQ SCH (22:00)
[2020-05-05] MEDS: HEPARIN NA (PORCINE) 5,000 UNITS/ML 1ML VIAL SQ SCH (22:38)
[2020-05-05] MEDS: LABETALOL HCL 200 MG TABLET (FP) PO SCH (22:39)
[2020-05-06] MEDS ORDERED: PT OWN MED DRAWER 7, Y5N ONE (01:25)
[2020-05-06] MEDS ORDERED: DEXTROSE 5%-WATER - 50 ML IVPB ONE ×3 (01:26→17:10)
[2020-05-06] MEDS ORDERED: PIPERACILLIN/TAZOBACTAM 3.375 GM VIAL IVPB ONE ×3 (01:26→17:10)
[2020-05-06] MEDS: morphine SULFATE 4 MG/ML VIAL IVPUSH PRN ×2 (01:41→09:33)
[2020-05-06] MEDS: HEPARIN NA (PORCINE) 5,000 UNITS/ML 1ML VIAL SQ SCH ×3 (06:34→21:15)
[2020-05-06 08:31] LABS: BASO % 0.1 % (0-2.0); HEMATOCRIT 37.5 % (35.4-49); HEMOGLOBIN 12.4 GM/dL (11.7-16.9); LYMPH % 10.6 % (8-40); MCH 27.9 pg (25.7-33.7); MCHC 33.2 g/dl (32.0-35.9); MEAN CELL VOLUME 84.2 fl (80-96); MEAN PLT VOLUME 10.7 fl (7.5-11.1); MONO % 7.2 % (3.8-10.2); NEUT % 82.1 % (42.8-82.8); PLATELET COUNT 136 K/MM3 (134-434); RBC 4.45 M/mm3 (4.00-5.60); RDW 13.9 % (11.9-15.9)
[2020-05-06 08:32] LABS: ALBUMIN 2.8 g/dl (3.4-5.0); BILIRUBIN,TOTAL 0.7 mg/dL (0.2-1); BLOOD UREA NITROGEN 15.5 mg/dL (7-18); CALCIUM 8.3 mg/dL (8.5-10.1); CREATININE 1.4 mg/dL (0.55-1.3); MAGNESIUM 2.3 mg/dL (1.8-2.4); PHOSPHOROUS 2.9 mg/dL (2.5-4.9); POTASSIUM 3.9 mmol/L (3.5-5.1); TOT PROT 6.7 g/dl (6.4-8.2)
[2020-05-06] MEDS: LABETALOL HCL 200 MG TABLET (FP) PO SCH ×2 (09:31→21:17)
--- NOTE | 2020-05-06 10:08 | PN ---
Progress Note (short form) - Note Progress Note: 44yo M s/p lap appendectomy POD 1. Pt complaining of diffuse abd pain. Denies fever, chills, n/v. Pt tolerating clears. Last Vital Signs Temp Pulse Resp BP Pulse Ox 98.8 F 75 20 114/77 97 05/06/20 07:07 05/06/20 07:07 05/06/20 07:07 05/06/20 07:07 05/06/20 07:07 CBC, BMP 05/06/20 07:00 05/06/20 07:00 PE: Gen: A&O x3 Resp: breathing comfortably Abd: soft, mildly distended, diffuse tenderness, incisions clean with no erythema. Drain in place with serous drainage. Ext: no edema Problem List - Problems (1) Appendicitis Assessment/Plan: Plan -will continue clears for now -monitor drain output -pain control -abx per med/ID Pt discussed with Dr. Fritz who agrees with plan Code(s): K37 - UNSPECIFIED APPENDICITIS Qualifiers: Appendicitis type: acute appendicitis Acute appendicitis type: with localized peritonitis Appendicitis gangrene presence: unspecified whether gangrene present Appendicitis perforation presence: without perforation Appendicitis abscess presence: unspecified whether abscess present Qualified Code(s): K35.30 - Acute appendicitis with localized peritonitis, without perforation or gangrene
--- NOTE | 2020-05-06 11:54 | PN ---
Progress Note, Physician History of Present Illness: c/o abd distension pain - Current Medication List Current Medications: Active Medications Acetaminophen (Ofirmev Injection -) 1,000 mg IVPB Q6H PRN PRN Reason: PAIN Stop: 05/06/20 04:49 Last Admin: 05/05/20 15:35 Dose: 1,000 mg Documented by: Heparin Sodium (Porcine) (Heparin -) 5,000 unit SQ TID POLY Last Admin: 05/06/20 06:34 Dose: 5,000 unit Documented by: Lactated Ringer's (Lactated Ringers Solution) 1,000 ml in 1,000 mls @ 125 ml s/hr IV ASDIR POLY Last Admin: 05/05/20 15:00 Dose: 855 mls Documented by: Piperacillin Sod/Tazobactam (Sod 3.375 gm/ Dextrose) 50 mls @ 100 mls/hr IVPB Q8H-IV POLY; Protocol Labetalol HCl (Normodyne -) 200 mg PO BID [facility] Last Admin: 05/06/20 09:31 Dose: 200 mg Documented by: Morphine Sulfate (Morphine Sulfate) 4 mg IVPUSH Q4H PRN PRN Reason: PAIN LEVEL 7 - 10 Last Admin: 05/06/20 09:33 Dose: 4 mg Documented by: Oxycodone HCl (Roxicodone -) 5 mg PO Q4H PRN PRN Reason: PAIN LEVEL 1-5 Oxycodone HCl (Roxicodone -) 10 mg PO Q4H PRN PRN Reason: PAIN LEVEL 6-10 - Objective Vital Signs: Vital Signs Temperature 98.6 F 05/06/20 11:00 Pulse Rate 72 05/06/20 11:00 Respiratory Rate 18 05/06/20 11:00 Blood Pressure 122/70 05/06/20 11:00 O2 Sat by Pulse Oximetry (%) 97 05/06/20 11:00 Constitutional: Yes: Calm, Mild Distress Cardiovascular: Yes: S1, S2 Respiratory: Yes: Regular, CTA Bilaterally Gastrointestinal: Yes: Distention, Hypoactive Bowel Sounds, Other Musculoskeletal: Yes: WNL Extremities: Yes: WNL Neurological: Yes: Alert, Oriented Psychiatric: Yes: Alert, Oriented Labs: CBC, BMP 05/06/20 07:00 05/06/20 07:00 INR, PTT INR 1.08 (0.83-1.09) 05/04/20 22:35 Assessment/Plan 44yo M with PMHx of HTN who presents with one day of abdominal pain. ED workup showed BP 150s/90s, P 112, WBC 12.3 with neutrophilic predominance, and CT abdomen/pelvis: acute retrocecal appendicitis w Acute appendicitis leukocytosis htn frederick abd pain patient still with abd discomfort and still with high wbc will continue zosyn and monitor hydration rest as per the team
[2020-05-06] MEDS: PIPERACILLIN/TAZOB 3.375 GM 3.375 GM in DEXTROSE 5%-WATER - 50 ML IVPB SCH ×2 (13:46→17:13)
--- NOTE | 2020-05-06 16:14 | PN ---
Teaching Attending Note Name of Resident: Evan Stanley ATTENDING PHYSICIAN STATEMENT I saw and evaluated the patient. I reviewed the resident's note and discussed the case with the resident. I agree with the resident's findings and plan as documented. SUBJECTIVE: Complains of abdominal pain. Nausea/vomiting resolved. No fever/chills. OBJECTIVE: Afebrile, Hemodynamically Stable. Last Vital Signs Temp Pulse Resp BP Pulse Ox 98.7 F 71 18 128/84 92 L 05/06/20 15:00 05/06/20 15:00 05/06/20 15:05/06/20 15:05/06/20 15:00 Heart - S1, S2, RRR Lungs - clear to auscultation Abdomen - RLQ tenderness++. XANDER drain LLQ Extremities - no edema, no calf tenderness. Neuro - AAO x 3. Tone/Power normal. Laboratory Results - last 24 hr 05/05/20 05/06/20 05/06/20 06:30 07:00 07:00 WBC 12.0 H RBC 4.45 Hgb 12.4 Hct 37.5 MCV 84.2 MCH 27.9 MCHC 33.2 RDW 13.9 Plt Count 136 MPV 10.7 Absolute Neuts (auto) 9.8 H Neutrophils % 82.1 Lymphocytes % 10.6 D Monocytes % 7.2 Eosinophils % 0.0 D Basophils % 0.1 Nucleated RBC % 0 Sodium 139 Potassium 3.9 Chloride 103 Carbon Dioxide 29 Anion Gap 7 L BUN 15.5 Creatinine 1.4 H Est GFR (CKD-EPI)AfAm 71.32 Est GFR (CKD-EPI)NonAf 61.53 Random Glucose 107 H Calcium 8.3 L Phosphorus 2.9 Magnesium 2.3 Total Bilirubin 0.7 AST 10 L ALT 18 Alkaline Phosphatase 57 Total Protein 6.7 Albumin 2.8 L COVID-19 ([facility]) Not detected Current Medications Generic Name Dose Route Start Last Admin Trade Name Freq PRN Reason Stop Dose Admin Heparin Sodium (Porcine) 5,000 unit 05/05/20 22:00 05/06/20 13:46 Heparin - SQ 5,000 unit TID POLY Administration Lactated Ringer's 1,000 ml in 1,000 mls @ 125 mls/hr 05/05/20 15:26 05/05/20 15:00 Lactated Ringers Solution IV 855 mls ASDIR POLY Administration Piperacillin Sod/Tazobactam 50 mls @ 100 mls/hr 05/06/20 13:00 05/06/20 13:46 Sod 3.375 gm/ Dextrose IVPB 100 mls/hr Q8H-IV POLY Administration Protocol Labetalol HCl 200 mg 05/05/20 22:00 05/06/20 09:31 Normodyne - PO 200 mg BID POLY Administration Morphine Sulfate 4 mg 05/05/20 15:26 05/06/20 09:33 Morphine Sulfate IVPUSH 4 mg Q4H PRN Administration PAIN LEVEL 7 - 10 Oxycodone HCl 5 mg 05/05/20 15:26 Roxicodone - PO Q4H PRN PAIN LEVEL 1-5 Oxycodone HCl 10 mg 05/05/20 15:26 Roxicodone - PO Q4H PRN PAIN LEVEL 6-10 Home Medications Medication Instructions Recorded Irbesartan/Hydrochlorothiazide 300 mg PO DAILY 05/05/20 [Irbesartan-Hctz 300-12.5 mg Tb] Labetalol HCl [Normodyne -] 200 mg PO BID 05/05/20 Potassium Chloride [Klor-Con] 20 meq PO DAILY 05/05/20 ASSESSMENT AND PLAN: 44 year old male with history of HTN, CKD 3, presents with RLQ abdominal pain, found to have acute appendicitis. 1. Acute Appendicitis CT A/P - findings consistent with acute appendicitis. POD 1 s/p laparoscopic appendectomy Continue Zosyn Diet advanced to clears Surgery following. 2. CKD 3 - stable Will refer to Nephrology on discharge for follow up. 3. HTN - BP meds on hold ryan-operatively Will resume Labetolol and eventually ARB/HCTZ post-op once BP allows. 4. Hypophosphatemia - repleted. DVT Px - Heparin SQ
--- NOTE | 2020-05-06 16:47 | PN ---
Physical Exam: SUBJECTIVE: Patient seen and examined. Admits to surgical pain in region. Denies nausea/vomiting. Denies fever/chills. OBJECTIVE: Vital Signs Period Temp Pulse Resp BP Sys/Celestin Pulse Ox Last 24 Hr 98.3 F-100.1 F 68-93 13-24 114-152/70-98 92-100 GENERAL: The patient is awake, alert, and fully oriented, in no acute distress. HEAD: Normal with no signs of trauma. EYES: PERRL, extraocular movements intact, sclera anicteric, conjunctiva clear. No ptosis. ENT: Ears normal, nares patent, oropharynx clear without exudates, moist mucous membranes. NECK: Trachea midline, full range of motion, supple. LUNGS: Breath sounds equal, clear to auscultation bilaterally, no wheezes, no crackles, no accessory muscle use. HEART: Regular rate and rhythm, S1, S2 without murmur, rub or gallop. ABDOMEN: Soft, XANDER drain in place, abdominal pain, nondistended, normoactive bowel sounds, no rebound, no hepatosplenomegaly, no masses. EXTREMITIES: 2+ pulses, warm, well-perfused, no edema. NEUROLOGICAL: Cranial nerves II through XII grossly intact. Normal speech, gait not observed. PSYCH: Normal mood, normal affect. SKIN: Warm, dry, normal turgor, no rashes or lesions noted Laboratory Results - last 24 hr 05/05/20 05/06/20 05/06/20 06:30 07:00 07:00 WBC 12.0 H RBC 4.45 Hgb 12.4 Hct 37.5 MCV 84.2 MCH 27.9 MCHC 33.2 RDW 13.9 Plt Count 136 MPV 10.7 Absolute Neuts (auto) 9.8 H Neutrophils % 82.1 Lymphocytes % 10.6 D Monocytes % 7.2 Eosinophils % 0.0 D Basophils % 0.1 Nucleated RBC % 0 Sodium 139 Potassium 3.9 Chloride 103 Carbon Dioxide 29 Anion Gap 7 L BUN 15.5 Creatinine 1.4 H Est GFR (CKD-EPI)AfAm 71.32 Est GFR (CKD-EPI)NonAf 61.53 Random Glucose 107 H Calcium 8.3 L Phosphorus 2.9 Magnesium 2.3 Total Bilirubin 0.7 AST 10 L ALT 18 Alkaline Phosphatase 57 Total Protein 6.7 Albumin 2.8 L COVID-19 ([facility]) Not detected Active Medications Generic Name Dose Route Start Last Admin Trade Name Freq PRN Reason Stop Dose Admin Heparin Sodium (Porcine) 5,000 unit 05/05/20 22:00 05/06/20 13:46 Heparin - SQ 5,000 unit TID POLY Administration Lactated Ringer's 1,000 ml in 1,000 mls @ 125 mls/hr 05/05/20 15:26 05/05/20 15:00 Lactated Ringers Solution IV 855 mls ASDIR POLY Administration Piperacillin Sod/Tazobactam 50 mls @ 100 mls/hr 05/06/20 13:00 05/06/20 13:46 Sod 3.375 gm/ Dextrose IVPB 100 mls/hr Q8H-IV POLY Administration Protocol Labetalol HCl 200 mg 05/05/20 22:00 05/06/20 09:31 Normodyne - PO 200 mg BID POLY Administration Morphine Sulfate 4 mg 05/05/20 15:26 05/06/20 09:33 Morphine Sulfate IVPUSH 4 mg Q4H PRN Administration PAIN LEVEL 7 - 10 Oxycodone HCl 5 mg 05/05/20 15:26 Roxicodone - PO Q4H PRN PAIN LEVEL 1-5 Oxycodone HCl 10 mg 05/05/20 15:26 Roxicodone - PO Q4H PRN PAIN LEVEL 6-10 ASSESSMENT/PLAN: 44yo M with PMHx of HTN who presents with RLQ abdominal pain. CT abdomen/pelvis: acute retrocecal appendicitis without abscess or free air. Patient admitted for appendicitis, to go to OR today. #Acute appendicitis -s/p appendectomy POD 1 -Continue zosyn -CT showing acute retrocecal appendicitis without abscess or free air -diet advanced to clears -Morphine PRN for pain #Hx of HTN -Hold home BP meds (Losartan, HCTZ) -Monitor BP; resume as BP allows FEN: clear Monitor electrolytes LR PPx: Heparin Dispo: Admitted to [facility]. Acute appendictis without perforation or abscess on Zosyn. S/p appendectomy POD1. Visit type - Emergency Visit Emergency Visit: Yes ED Registration Date: 05/05/20 Care time: The patient presented to the Emergency Department on the above date and was hospitalized for further evaluation of their emergent condition. - New Patient This patient is new to me today: No - Critical Care Critical Care patient: No ATTENDING PHYSICIAN STATEMENT I saw and evaluated the patient. I reviewed the resident's note and discussed the case with the resident. I agree with the resident's findings and plan as documented. SUBJECTIVE: OBJECTIVE: ASSESSMENT AND PLAN:
[2020-05-06] MEDS: LACTATED RINGERS SOLUTION 1,000 ML/1,000 ML INFUS.BAG IV SCH ×2 (21:18→23:44)
[2020-05-07] MEDS ORDERED: DEXTROSE 5%-WATER - 50 ML IVPB ONE ×2 (00:58→08:33)
[2020-05-07] MEDS ORDERED: PIPERACILLIN/TAZOBACTAM 3.375 GM VIAL IVPB ONE ×2 (00:58→08:33)
[2020-05-07] MEDS: PIPERACILLIN/TAZOB 3.375 GM 3.375 GM in DEXTROSE 5%-WATER - 50 ML IVPB SCH ×2 (01:21→09:09)
[2020-05-07] MEDS: HEPARIN NA (PORCINE) 5,000 UNITS/ML 1ML VIAL SQ SCH ×2 (05:20→13:09)
[2020-05-07 08:21] LABS: BASO % 0.3 % (0-2.0); EOS % 0.9 % (0-4.5); HEMATOCRIT 37.6 % (35.4-49); HEMOGLOBIN 12.3 GM/dL (11.7-16.9); LYMPH % 20.2 % (8-40); MCH 27.6 pg (25.7-33.7); MCHC 32.6 g/dl (32.0-35.9); MEAN CELL VOLUME 84.8 fl (80-96); MEAN PLT VOLUME 10.8 fl (7.5-11.1); MONO % 8.3 % (3.8-10.2); NEUT % 70.3 % (42.8-82.8); PLATELET COUNT 162 K/MM3 (134-434); RBC 4.43 M/mm3 (4.00-5.60); RDW 14.1 % (11.9-15.9); WHITE BLOOD COUNT 7.7 K/mm3 (4.0-10.0)
[2020-05-07 08:26] LABS: ALBUMIN 2.9 g/dl (3.4-5.0); BILIRUBIN,TOTAL 0.9 mg/dL (0.2-1); BLOOD UREA NITROGEN 15.2 mg/dL (7-18); CALCIUM 8.6 mg/dL (8.5-10.1); CREATININE 1.3 mg/dL (0.55-1.3); MAGNESIUM 2.4 mg/dL (1.8-2.4); PHOSPHOROUS 3.1 mg/dL (2.5-4.9); POTASSIUM 3.9 mmol/L (3.5-5.1); TOT PROT 6.9 g/dl (6.4-8.2)
--- NOTE | 2020-05-07 08:45 | PN ---
Progress Note, Physician History of Present Illness: feels better abd soft still with some tenderness - Current Medication List Current Medications: Active Medications Heparin Sodium (Porcine) (Heparin -) 5,000 unit SQ TID [facility] Last Admin: 05/07/20 05:20 Dose: 5,000 unit Documented by: Lactated Ringer's (Lactated Ringers Solution) 1,000 ml in 1,000 mls @ 125 mls/hr IV ASDIR POLY Last Admin: 05/06/20 23:44 Dose: 125 mls/hr Documented by: Piperacillin Sod/Tazobactam (Sod 3.375 gm/ Dextrose) 50 mls @ 100 mls/hr IVPB Q8H-IV POLY; Protocol Last Admin: 05/07/20 01:21 Dose: 100 mls/hr Documented by: Labetalol HCl (Normodyne -) 200 mg PO BID [facility] Last Admin: 05/06/20 21:17 Dose: 200 mg Documented by: Morphine Sulfate (Morphine Sulfate) 4 mg IVPUSH Q4H PRN PRN Reason: PAIN LEVEL 7 - 10 Last Admin: 05/06/20 09:33 Dose: 4 mg Documented by: Oxycodone HCl (Roxicodone -) 5 mg PO Q4H PRN PRN Reason: PAIN LEVEL 1-5 Oxycodone HCl (Roxicodone -) 10 mg PO Q4H PRN PRN Reason: PAIN LEVEL 6-10 - Objective Vital Signs: Vital Signs Temperature 99.3 F 05/07/20 06:00 Pulse Rate 79 05/07/20 06:00 Respiratory Rate 20 05/07/20 06:00 Blood Pressure 152/92 05/07/20 06:00 O2 Sat by Pulse Oximetry (%) 92 L 05/06/20 22:00 Constitutional: Yes: Calm, Mild Distress Cardiovascular: Yes: S1, S2 Respiratory: Yes: Regular, CTA Bilaterally Gastrointestinal: Yes: Soft, Hypoactive Bowel Sounds Musculoskeletal: Yes: WNL Extremities: Yes: WNL Neurological: Yes: Alert, Oriented Psychiatric: Yes: Alert, Oriented Labs: CBC, BMP 05/07/20 07:15 05/07/20 07:15 INR, PTT INR 1.08 (0.83-1.09) 05/04/20 22:35 Assessment/Plan 44yo M with PMHx of HTN who presents with one day of abdominal pain. ED workup showed BP 150s/90s, P 112, WBC 12.3 with neutrophilic predominance, and CT abdomen/pelvis: acute retrocecal appendicitis w Acute appendicitis leukocytosis htn frederick abd pain wbc has normalized if patients diet is advanced acn switch to oral augmentin for 3-4 days
--- NOTE | 2020-05-07 08:50 | PN ---
Progress Note (short form) - Note Progress Note: Surgery: Pt states that he tolerated clears yesterday and had flatus overnight. Voiding without difficulty. Vital Signs Period Temp Pulse Resp BP Sys/Celestin Pulse Ox Last 24 Hr 97.6 F-99.3 F 71-87 18-20 122-152/70-94 92-97 XANDER: 40 ml serosangrenous GEN: A&0x3, NAD ABD: soft, non-distended, RLQ tenderness with palpation LE: scds in place and working. No b/l LE tenderness or swelling noted. CBC, BMP 05/07/20 07:15 05/07/20 07:15 A/P: 44 yo male s/p lap appy, POD#2 adv diet as tolerated, although the patient prefers clears OOB and ambulate Xander removed with the tip intact Discharge instructions completed. Follow up next week with Dr. Fritz D/w Dr. Fritz Problem List - Problems (1) Appendicitis Code(s): K37 - UNSPECIFIED APPENDICITIS Qualifiers: Appendicitis type: acute appendicitis Acute appendicitis type: with localized peritonitis Appendicitis gangrene presence: unspecified whether gangrene present Appendicitis perforation presence: without perforation Appendicitis abscess presence: unspecified whether abscess present Qualified Code(s): K35.30 - Acute appendicitis with localized peritonitis, without perfo ration or gangrene
[2020-05-07] MEDS: LABETALOL HCL 200 MG TABLET (FP) PO SCH (09:08)
--- NOTE | 2020-05-07 11:18 | OP ---
DATE OF OPERATION: 05/05/2020 PREOPERATIVE DIAGNOSIS: Acute appendicitis. POSTOPERATIVE DIAGNOSIS: Gangrenous appendicitis. PROCEDURE: Laparoscopic appendectomy. SURGEON: Sukh Fritz MD. LINE PERSON: Sorin Mcknight PA-C ANESTHESIA: General. OPERATIVE FINDINGS: Gangrenous retrocecal appendicitis. There was a minimal phlegmon. There was no evidence of gross perforation; however, there was gangrene of the mid to distal portion of the retrocecal appendix, and the rest of the findings were unremarkable. PROCEDURE: The patient was placed on the operating room table in the supine position, and after induction of general anesthesia and placement of a Renee catheter, the patient's abdomen was prepped with ChloraPrep and draped in sterile fashion. A timeout was taken, and pneumoperitoneum established at the umbilicus, using a Veress needle to an intraabdominal pressure of 15 mmHg. Next, a 12-mm suprapubic port just to the left of the midline was placed without incident, and then a left lower quadrant 5-mm port. The patient was placed in the head-down position and rotated to the left and laparoscopy carried out and previously noted findings were observed. The appendix was grasped and using blunt dissection and the LigaSure device mobilized from the lateral abdominal wall. The mesoappendix was serially divided using the LigaSure device as well. Once the base of the appendix was identified at the confluence of the 3 tenia on the cecum, a 60-mm Endo RADHA purple load stapler was placed across the base of the appendix and fired. The appendix was then placed in an EndoCatch and brought up to the abdominal wall at the 12-mm port site. The suture line was inspected for hemostasis and/or leak, and there was found to be none. The appendix was then removed with the 12-mm port, and sent the pathological examination. The 12-mm port was replaced and pneumoperitoneum reestablished, and hemostasis checked for and noted to be good. A 10-mm XANDER drain was introduced through the left lower quadrant 5-mm port site and positioned in the right lower quadrant/pelvis and the 5-mm port removed and the drain secured to the skin with 2-0 silk suture and then the drain was connected to bulb self suction. The remaining ports were removed under laparoscopic vision, and the pneumoperitoneum evacuated. The defect at the suprapubic port site was closed with a single [id number] 0 Vicryl suture, and the port sites were injected with 0.5% Marcaine. The skin edges were reapproximated with interrupted 4-0 Biosyn followed by Steri-Strips and Band-Aid dressings. The patient was then aroused from anesthesia and prior to this the Renee catheter removed, and the patient transferred to post anesthesia care unit in stable condition awake and alert, estimated blood loss 15 mL, replacement crystalloid, drains one 10-mm Otoniel-Mari in the pelvis, specimen appendix to pathology and purulent peritoneal fluid to microbiology. ESTIMATED BLOOD LOSS: 15 mL. REPLACEMENT: Crystalloid. DRAINS: One 10-mm Otoniel-Mari in the right lower quadrant. SPECIMEN: Appendix to pathology. I, Sukh Fritz, was physically present in the operating room from the time the patient was placed on the operating table until he was transferred to the postanesthesia care unit in my accompaniment. MD RADHA Brand/[id number] MTDD
[2020-05-07 15:31] VITALS: BP 153/90; PULSE 84; TEMP 99.4
--- NOTE | 2020-05-07 15:59 | PN ---
Teaching Attending Note Name of Resident: Evan Stanley ATTENDING PHYSICIAN STATEMENT I saw and evaluated the patient. I reviewed the resident's note and discussed the case with the resident. I agree with the resident's findings and plan as documented. SUBJECTIVE: Abdominal pain improved, tolerating clears, passed flatus. Nausea/vomiting resolved. No fever/chills. OBJECTIVE: Afebrile, Hemodynamically Stable. Last Vital Signs Temp Pulse Resp BP Pulse Ox 99.4 F 84 18 153/90 98 05/07/20 14:00 05/07/20 14:00 05/07/20 14:00 05/07/20 14:00 05/07/20 14:00 Heart - S1, S2, RRR Lungs - clear to auscultation Abdomen - RLQ tenderness+. XANDER drain LLQ < 20cc overnight Extremities - no edema, no calf tenderness. Neuro - AAO x 3. Tone/Power normal. Laboratory Results - last 24 hr 05/07/20 05/07/20 07:15 07:15 WBC 7.7 RBC 4.43 Hgb 12.3 Hct 37.6 MCV 84.8 MCH 27.6 MCHC 32.6 RDW 14.1 Plt Count 162 MPV 10.8 Absolute Neuts (auto) 5.4 Neutrophils % 70.3 Lymphocytes % 20.2 D Monocytes % 8.3 Eosinophils % 0.9 D Basophils % 0.3 Nucleated RBC % 0 Sodium 141 Potassium 3.9 Chloride 105 Carbon Dioxide 30 Anion Gap 6 L BUN 15.2 Creatinine 1.3 Est GFR (CKD-EPI)AfAm 78.00 Est GFR (CKD-EPI)NonAf 67.30 Random Glucose 85 Calcium 8.6 Phosphorus 3.1 Magnesium 2.4 Total Bilirubin 0.9 AST 9 L ALT 18 Alkaline Phosphatase 55 Total Protein 6.9 Albumin 2.9 L Current Medications Generic Name Dose Route Start Last Admin Trade Name Freq PRN Reason Stop Dose Admin Amoxicillin/Clavulanate Potassium 1 tab 05/07/20 22:00 Augmentin - 500mg Tablet PO BID POLY Heparin Sodium (Porcine) 5,000 unit 05/05/20 22:00 05/07/20 13:09 Heparin - SQ 5,000 unit TID POLY Administration Lactated Ringer's 1,000 ml in 1,000 mls @ 125 mls/hr 05/05/20 15:26 05/06/20 23:44 Lactated Ringers Solution IV 125 mls/hr ASDIR POLY Administration Labetalol HCl 200 mg 05/05/20 22:00 05/07/20 09:08 Normodyne - PO 200 mg BID POLY Administration Oxycodone HCl 5 mg 05/05/20 15:26 Roxicodone - PO Q4H PRN PAIN LEVEL 1-5 Oxycodone HCl 10 mg 05/05/20 15:26 Roxicodone - PO Q4H PRN PAIN LEVEL 6-10 Discharge Medications Medication Instructions Recorded Irbesartan/Hydrochlorothiazide 300 mg PO DAILY 05/05/20 [Irbesartan-Hctz 300-12.5 mg Tb] Labetalol HCl [Normodyne -] 200 mg PO BID 05/05/20 Potassium Chloride [Klor-Con] 20 meq PO DAILY 05/05/20 Amox-Tr/K Cl [Augmentin 500-125mg 1 tab PO BID #8 tablet 05/07/20 Tablet -] oxyCODONE HCL [Roxicodone -] 5 mg PO Q4H PRN #20 tablet MDD 6 05/07/20 ASSESSMENT AND PLAN: 44 year old male with history of HTN, CKD 3, presents with RLQ abdominal pain, found to have acute appendicitis. 1. Acute Appendicitis CT A/P - findings consistent with acute appendicitis. POD 2 s/p laparoscopic appendectomy Tolerating clears - diet advanced, XANDER drain to be removed. Can be discharged once tolerating diet as per Surgery. Surgery follow up as out-patient. Initially received Zosyn - transitioned to Augmentin as per ID. 2. CKD 3 - stable Will refer to Nephrology on discharge for follow up. 3. HTN - Resume Labetolol and ARB/HCTZ on discharge 4. Hypophosphatemia - repleted. Medically stable, surgically cleared for discharge
--- NOTE | 2020-05-07 16:11 | DS ---
Physical Exam: SUBJECTIVE: Patient seen and examined. Improved abdominal pain. OBJECTIVE: Vital Signs Period Temp Pulse Resp BP Sys/Celestin Pulse Ox Last 24 Hr 97.6 F-100.2 F 79-87 18-20 133-158/79-94 92-98 PHYSICAL EXAM GENERAL: The patient is awake, alert, and fully oriented, in no acute distress. HEAD: Normal with no signs of trauma. EYES: PERRL, extraocular movements intact, sclera anicteric, conjunctiva clear. ENT: Ears normal, nares patent, oropharynx clear without exudates, moist mucous membranes. NECK: Trachea midline, full range of motion, supple. LUNGS: Breath sounds equal, clear to auscultation bilaterally, no wheezes, no crackles, no accessory muscle use. HEART: Regular rate and rhythm, S1, S2 without murmur, rub or gallop. ABDOMEN: Soft, tender to deep palpation , nondistended, normoactive bowel sounds, no guarding, no rebound, no hepatosplenomegaly, no masses. EXTREMITIES: 2+ pulses, warm, well-perfused, no edema. NEUROLOGICAL: Cranial nerves II through XII grossly intact. Normal speech, gait not observed. PSYCH: Normal mood, normal affect. SKIN: Warm, dry, normal turgor, no rashes or lesions noted. LABS Laboratory Results - last 24 hr 05/07/20 05/07/20 07:15 07:15 WBC 7.7 RBC 4.43 Hgb 12.3 Hct 37.6 MCV 84.8 MCH 27.6 MCHC 32.6 RDW 14.1 Plt Count 162 MPV 10.8 Absolute Neuts (auto) 5.4 Neutrophils % 70.3 Lymphocytes % 20.2 D Monocytes % 8.3 Eosinophils % 0.9 D Basophils % 0.3 Nucleated RBC % 0 Sodium 141 Potassium 3.9 Chloride 105 Carbon Dioxide 30 Anion Gap 6 L BUN 15.2 Creatinine 1.3 Est GFR (CKD-EPI)AfAm 78.00 Est GFR (CKD-EPI)NonAf 67.30 Random Glucose 85 Calcium 8.6 Phosphorus 3.1 Magnesium 2.4 Total Bilirubin 0.9 AST 9 L ALT 18 Alkaline Phosphatase 55 Total Protein 6.9 Albumin 2.9 L HOSPITAL COURSE: Date of Admission:05/05/20 Pt is a 44 year old male with PMHx of HTN, CKD 3 presenting with RLQ abdominal pain, admitted for appendicitis. Pt had appendectomy which was gangrenous, on Zosyn and XANDER drain placed draining serosanguineous fluid - removed on POD 2. Transitioned to Augmentin PO for 5 total days, 4 days remaining on discharge. Pt with hx of CKD 3 but stable. Pt to follow up with general surgery, infectious disease and PCP outpatient. Date of Discharge: 05/07/20 Minutes to complete discharge: 35 Discharge Summary Problems reviewed: Yes Reason For Visit: RIGHT LOWER QUADRANT ABDOMINAL PAIN, APPENDICITIS Current Active Problems Appendicitis (Acute) RLQ abdominal pain (Acute) Condition: Stable - Instructions Diet, Activity, Other Instructions: You came to the hospital for abdominal pain and were found to have an appendicitis. You had surgery to remove your appendix, and were given antibiotics to help with the infection associated with it. You had a drain placed to help drain residual fluid from the appendix, which was eventually removed. Please FINISH your course of antibiotic, Augmentin 500mg, twice a day for 4 more days until completion. Please resume your home medications as prescribed. Please follow up with your primary care physician, Dr. Daigle, within 1 week for your overall health care management. Please follow up with your infectious disease doctor, Dr. Angel, within 2 weeks. Please follow up with your surgeon, Dr. Fritz, within 7-10 days. If you have any new, changing or increasing symptoms, please return to the ED or call 911. Dr. Frizt Discharge Instructions Dear ELYSE CHOU, Post Operative Instructions Physical activity Resume your normal everyday activity as tolerated no heavy lifting or exercise until seen by your surgeon. You may walk unlimited amounts of and climb stairs. You may resume driving the car when you feel safe and comfortable behind the wheel. Wound care You have a liquid bandage over your incisions. This will come off slowly on its own over the next few weeks. Please avoid picking at it if you notice it flaking. You may shower starting tomorrow. When showering allow soap and water to run over the incision. Do not scrub, pat dry after showering. Diet There are no dietary restrictions. Eat healthy, high-fiber foods. Drink 6 to 8 glasses of liquid each day. This will assist in keeping your bowels are regular. Pain management You may take Tylenol or acetaminophen or Ibuprofen (for example, Motrin, Advil etc.) Any pain prescription medication ordered should be taken as prescribed for moderate to severe pain. Call Dr. Fritz for any of the following: Severe pain not relieved by medication Fever of 101 or higher Excessive bleeding or drainage on dressing Inability to urinate Call the office at [phone] for a post operative appointment in 7 - 10 days. Referrals: Sukh Fritz MD [Staff Physician] - Baljinder Angel MD [Staff Physician] - Disposition: HOME - Home Medications Comprehensive Discharge Medication List: Ambulatory Orders Irbesartan/Hydrochlorothiazide [Irbesartan-Hctz 300-12.5 mg Tb] 300 mg PO DAILY 05/05/20 Labetalol HCl [Normodyne -] 200 mg PO BID 05/05/20 Potassium Chloride [Klor-Con] 20 meq PO DAILY 05/05/20 Amox-Tr/K Cl [Augmentin 500-125mg Tablet -] 1 tab PO BID #8 tablet 05/07/20 oxyCODONE HCL [Roxicodone -] 5 mg PO Q4H PRN #20 tablet MDD 6 05/07/20 This patient is new to me today: Yes Date on this admission: 05/17/20 Emergency Visit: No Critical Care patient: No - Discharge Referral Referred to [facility] Med P.C[facility] No ATTENDING PHYSICIAN STATEMENT I saw and evaluated the patient. I reviewed the resident's note and discussed the case with the resident. I agree with the resident's findings and plan as documented. SUBJECTIVE: OBJECTIVE: ASSESSMENT AND PLAN:
[2020-05-07] MEDS ORDERED: AMOX TR/POT CLAV 500MG/125MG TABLETS (FP) PO SCH (22:00)
--- NOTE | 2020-05-08 13:59 | PATH ---
Surgical Pathology Report Patient Name: ELYSE CHOU Med. Rec. #: [id number] /Age/Gender: 1975 (Age: 44) / M Account: [id number] Location: [facility] MED/SURG Taken: 05/05/2020 Received: 05/06/2020 Reported: 05/08/2020 Physicians: Sukh Fritz MD Specimen(s) Received APPENDIX Clinical History Right lower quadrant abdominal pain, appendicitis Final Diagnosis APPENDIX, LAPAROSCOPIC APPENDECTOMY: ACUTE APPENDICITIS AND PERIAPPENDICITIS. Electronically Signed Shruti Springer M.D. Gross Description Received in formalin labeled "appendix," is a 9 cm in length vermiform appendix. The specimen displays a staple line at one end, likely consistent with the margin of resection. There is a defect in the outer surface of the specimen at the distal tip. The outer surface is pleitez-brown with attached exudate and no attached fat. Sectioning reveals hemorrhage and pus within the lumen. The wall of the appendix averages 0.1 cm in thickness. Coagulant Dipper sections are submitted in one cassette. /05/07/2020 saudi/05/07/2020
== END 2020-05-07 18:18 | disposition home or self-care (01) | DRG 225 ==
LOC: JER 21:15 → JERBED 05-05 02:13 → J8W 05-05 22:34
PROVIDERS: ADMIT Hospitalist
PROC: 0DTJ4ZZ Resection of Appendix, Percutaneous Endoscopic Approach (ICD-10-PCS; principal; 2020-05-05 13:30)
DX: K35.891 Other acute appendicitis without perforation, with gangrene (principal); R00.0 Tachycardia, unspecified; D72.829 Elevated white blood cell count, unspecified; I12.9 Hypertensive chronic kidney disease with stage 1 through stage 4 chronic kidney disease, or unspecified chronic kidney disease; N18.3 Chronic kidney disease, stage 3 (moderate); E83.39 Other disorders of phosphorus metabolism; E86.0 Dehydration
CPT/HCPCS: 36415; 71046-TC-FY; 74177-TC; 80053; 81003; 83690; 83735; 84100; 85025; 85610; 85730; 86850; 86900; 86901; 87086; 88304-TC; 93005; 93010; 94010; 94760; 99285-25; J0131; J1644; U0003